=== PATIENT | female | born 1990 ===

== ENCOUNTER 2022-04-21 08:41 | Outpatient (REF) | payer OTHER, SELFPAY ==
[2022-04-21 11:25] LABS: Hematocrit 36.2 % (37.0-47.0); Hemoglobin 11.8 g/dl (12.0-16.0); Mean Corpuscular HGB Conc 32.6 g/dl (31.0-35.0); Mean Corpuscular Hemoglobin 29.8 pg (27.0-33.0); Mean Corpuscular Volume 91.4 fL (80.0-98.0); Mean Platelet Volume 10.8 fL (9.4-12.3); Platelet Count 317 X10*3/uL (160-400); Red Blood Count 3.96 X10*6/uL (4.20-5.50); Red Cell Distribution Width 11.9 % (11.0-16.0); White Blood Count 7.6 X10*3/uL (4.8-10.8)
[2022-04-21 11:56] LABS: Alanine Aminotransferase 37 U/L (0-31); Alkaline Phosphatase 60 U/L (39-117); Anion Gap 10 (12-20); Aspartate Amino Transferase 30 U/L (5-31); Bilirubin Total 0.3 mg/dL (0.0-1.0); Blood Urea Nitrogen 15 mg/dL (9-16); Calcium 8.5 mg/dL (8.4-10.2); Carbon Dioxide 27 mmol/L (22-29); Chloride 108 mmol/L (96-108); Cholesterol 164 mg/dL; Estimated Glomerular Filt Rate > 60; Glucose Fasting 111 mg/dL (60-99); HDL Cholesterol 28 mg/dL; LDL Cholesterol Calculated 104 mg/dl; Potassium 4.1 mmol/L (3.3-5.1); Sodium 141 mmol/L (135-145); Total Protein 6.9 g/dL (6.5-8.0); Triglycerides 160 mg/dL
[2022-04-21 11:57] LABS: TSH reflex Free T4 1.29 uIU/mL (0.32-4.0)
== END 2022-04-21 08:42 | disposition home or self-care (01) ==
LOC: HO.WFDLDS 08:41
PROVIDERS: Visit Provider Hospitalist
DX: Z00.00 Encounter for general adult medical examination without abnormal findings (principal)
CPT/HCPCS: 36415; 80053; 80061; 84443; 85027

== ENCOUNTER 2022-05-05 08:42 | Outpatient (REF) | payer OTHER, SELFPAY ==
[2022-05-05 12:07] LABS: Estimated Average Glucose 100 mg/dL; Hemoglobin A1c % 5.1 %
== END 2022-05-05 08:43 | disposition home or self-care (01) ==
LOC: HO.WFDLDS 08:42
PROVIDERS: Visit Provider Hospitalist
DX: R73.01 Impaired fasting glucose (principal)
CPT/HCPCS: 36415; 83036

== ENCOUNTER 2022-11-19 15:26 | Outpatient (REF) | payer OTHER, SELFPAY ==
[2022-11-19 16:15] LABS: Influenza A PCR NEGATIVE (Negative); Influenza B PCR NEGATIVE (Negative); Resp Syncy Virus RNA Qual PCR NEGATIVE (Negative); SARS COV2 PCR INHOUSE NEGATIVE (Negative)
== END 2022-11-19 15:27 | disposition home or self-care (01) ==
LOC: HO.LNP 15:26
PROVIDERS: Visit Provider Physician Assistant Medical
DX: Z20.822 Contact with and (suspected) exposure to COVID-19 (principal); R05.9 Cough, unspecified
CPT/HCPCS: 0241U

== ENCOUNTER 2023-05-23 08:12 | Outpatient (AMB) | payer OTHER, SELFPAY ==
--- NOTE | 2023-05-23 08:14 | AM.OFFWIN_ITS ---
Intake Vital Signs 05/23/23 08:22 BP 100/60 Blood Pressure Location Lt brachial Position Sitting Pulse 76 Pulse Source Pulse Oximeter Temp 97.9 F Temp Source Oral Pulse Oximetry (%) 97 Oxygen Delivery Method Room Air Intake Visit Reasons: EP Cough [phone] Intake Note: Pt is here today c/o dry cough 1week: Pt states just came back from a trip in [place], 05/17/23 sx's started over there Patient Tobacco Use Status: Never used Tobacco Allergies No Known Allergies [No Known Allergies*] Allergy (Verified 05/23/23 08:15) Do you need a note to return to daycare/school/sports/work: Yes HPI EP Cough [phone] HPI Details Patient presents for a sick visit. Reporting symptoms of sinus congestion, sore throat and difficulty swallowing. Low-grade fever. No family member is sick. No recent travel. Patient reports symptoms of malaise and fatigue. 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 Current occupational exposures/hazards: No Cognitive needs: No Hearing needs: No Vision needs: Yes Physical Exam Vital Signs: Last Vital Signs Temp 97.9 F 05/23/23 08:22 Pulse 76 05/23/23 08:22 BP 100/60 05/23/23 08:22 Pulse Ox 97 05/23/23 08:22 Oxygen Delivery Method Room Air 05/23/23 08:22 Const General: cooperative and healthy appearing Nutritional Appearance: well nourished Orientation/consciousness: patient oriented x3 Limitations: no limitations HEENT Head: Yes normal to inspection Eyes General: appearance normal, both eyes and all related structures Neck Neck: Yes normal visual inspection Chest Chest palpation & inspection: normal palpation of entire chest wall Resp Effort & Inspection: normal respiratory effort Neuro General: patient oriented x3 Assessment & Plan Assessment & Plan (1) Upper respiratory tract infection: Code(s): J06.9 - Acute upper respiratory infection, unspecified Plan: Antibiotics ordered. Increase fluid intake. Tylenol for aches and pains. If symptoms worsen, follow-up here for a recheck. COVID testing done. Prednisone added. Coding Level of Care Code Est Pt Level 3 (55395) Diagnoses Upper respiratory tract infection J06.9
[2023-05-23 08:22] VITALS: BP 100/60; PULSE 76; TEMP 36.6; O2SAT 97
== END 2023-05-23 08:39 | disposition home or self-care (01) ==
PROVIDERS: PCP Hospitalist; Visit Provider Internal Medicine
DX: J06.9 Acute upper respiratory infection, unspecified (principal)
CPT/HCPCS: 99213

== ENCOUNTER 2023-05-23 09:07 | Outpatient (REF) | payer OTHER, SELFPAY ==
[2023-05-23 13:19] LABS: Influenza A PCR NEGATIVE (Negative); Influenza B PCR NEGATIVE (Negative); Resp Syncy Virus RNA Qual PCR NEGATIVE (Negative); SARS COV2 PCR INHOUSE NEGATIVE (Negative)
== END 2023-05-23 09:08 | disposition home or self-care (01) ==
LOC: HO.LAB 09:07
PROVIDERS: Visit Provider Internal Medicine
DX: Z20.822 Contact with and (suspected) exposure to COVID-19 (principal); R43.9 Unspecified disturbances of smell and taste
CPT/HCPCS: 0241U

== ENCOUNTER 2023-09-18 14:59 | Outpatient (AMB) | payer OTHER, SELFPAY ==
--- NOTE | 2023-09-18 15:04 | A.OFFPC_ITS ---
Vital Signs 09/18/23 15:05 Height 5 ft Weight 133 lb BMI 26.0 Intake Visit Reasons: JIGNESH, requesting PE - NEEDS PHQ-9/THRIVE Allergies No Known Allergies [No Known Allergies*] Allergy (Verified 09/18/23 15:08) Tobacco use date assessed: 04/20/22 HPI HPI Comments History of Present Illness Details 33 y/o female presents for a transfer of care and an extended physical exam. Her former PCP was LOIDA who is no longer with the practice. Her last office visit and blood work was in April 2022. 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 Mark Quintanilla, Isabel Hood, Hoang Jerome and colleagues, with an educational gi from [employer]. Physical exam (Primary Care) Tobacco/Smoking Status: Tobacco use Status Tobacco use date assessed 04/20/22 04/20/22 15:12 Patient Tobacco Use Status Never used Tobacco 05/23/23 08:18 e-Cigarette/Vaping Use Never Used 04/20/22 15:12 Thrive Assessment: Date of Thrive Assessment Date Thrive assessed 04/20/22 04/20/22 15:12 Coding
--- NOTE | 2023-09-18 15:04 | MHC.PC.OV ---
Vital Signs 09/18/23 15:05 Height 5 ft Weight 133 lb BMI 26.0 BP 112/68 Blood Pressure Location Rt brachial Position Sitting Respiration 12 Pulse 72 Pulse Source Pulse Oximeter Pulse Oximetry (%) 97 Oxygen Delivery Method Room Air Intake Visit Reasons: JIGNESH, requesting PE - NEEDS PHQ-9/THRIVE Intake Note: Patient is here, transferring care from [facility], she would like to discuss tingling in hands and face comes and goes 2-3 years. Allergies No Known Allergies [No Known Allergies*] Allergy (Verified 09/18/23 15:23) Medication List - Last Reconciled 09/18/23 by Tamela Macedo CNP albuterol sulfate 90 mcg/actuation 1 inh inhalation QID PRN fluticasone propionate 50 mcg/actuation 1 spray intranasal DAILY Tobacco use date assessed: 09/18/23 Dental Screening Dental Screen Date: 09/18/23 Did you have a dental visit in the last 12 months?: Yes Did you have a dental problem in the last 6 months where you did not have access to dental care?: No Was dental information given to patient?: Patient has dentist HPI HPI Comments History of Present Illness Details 33 y/o female presents for a transfer of care and an extended physical exam. Her former PCP was LOIDA who is no longer with the practice. Her last office visit and blood work was in April 2022. She has no significant past medical history. She is not on routine prescription medications. She offers no complaints and denies acute symptoms at this time. 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 She states that she is sexually active, in a monogamous relationship, and practices safe sex. She denies smoking cigarette, drinking alcohol, or recreational drug use. 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 1. Little interest or pleasure in doing things: not at all 2. Feeling down, depressed, or hopeless: not at all 3. Trouble falling or staying asleep, or sleeping too much: several days 4. Feeling tired or having little energy: several days 5. Poor appetite or overeating: not at all 6. Feeling bad about yourself - or that you are a failure or have let yourself or your family down: not at all 7. Trouble concentrating on things, such as reading the newspaper or watching television: not at all 8. Moving or speaking so slowly that other people could have noticed. Or the opposite - being so fidgety or restless that you have been moving around a lot more than usual: not at all 9. Thoughts that you would be better off or of hurting yourself in some way: not at all Total score: 2 Depression Screening Interpretation: Negative Depression Screening Done: Yes Source: Developed by Drs. Mark Quintanilla, Isabel Hood, Hoang Jerome and colleagues, with an educational gi from [employer]. Thrive Questionnaire Date Thrive assessed: 04/20/22 I am a: Patient What is your living situation today?: I have a steady place to live Within the past 12 months, did the food you bought not last and you didn't have the money to get more?: Never true Within the past 12 months, did you worry whether your food would run out before you got money to buy more?: Never true Do you have trouble paying for medicines?: No Do you have trouble getting transportation to medical appointments?: No Do you have trouble paying your heating and electricity bill?: No Do you have trouble taking care of your child, family member or friend?: No Do you have trouble with day-to-day activities such as bathing, preparing meals, shopping, managing finances, etc.?: No Are you currently unemployed and looking for a job?: No Are you interested in more education?: No AUDIT C Alcohol Use Questionnaire (AUDIT-C) 1. How often do you have a drink containing alcohol?: Never 3. How often do you have six or more drinks on one occasion?: Never Total Score: 0 YANNICK-7 AMB Questionnaire YANNICK-7 Date YANNICK - 7 assessed: 09/18/23 Feeling nervous, anxious, or on edge: 0 = Not at all Not being able to stop or control worryin = Not at all Worrying too much about different things: 0 = Not at all Trouble relaxin = Not at all Being so restless that it is hard to sit still: 0 = Not at all Becoming easily annoyed or irritable: 0 = Not at all Feeling afraid as if something awful might happen: 0 = Not at all Total YANNICK-7 score (0-4 normal; 5-9 mild; 10-14 moderate; 15-21 severe): 0 Source: Developed by Drs. Mark Quintanilla, Isabel Hood, Hoang Jerome and colleagues, with an educational gi from [employer]. Review of Systems Const Details: Denies chills, Denies fatigue, Denies fever(s), Denies headache(s) and Denies weakness HEENT Denies change in vision, Denies dizziness, Denies headache(s), Denies hearing loss, Denies nasal congestion, Denies sinus pain, Denies sinus pressure and Denies sore throat Card Denies chest pain, Denies lightheadedness, Denies dyspnea and Denies other (palpitations) Resp Denies cough, Denies dyspnea and Denies wheezing GI Denies abdominal pain, Denies melena, Denies hematochezia, Denies change in bowel habits, Denies dyspepsia and Denies nausea Denies hematuria and Denies dysuria Musc Denies abnormal gait, Denies myalgias, Denies arthralgias, Denies numbness and Denies tingling Skin/Breast Denies rash, Denies unusual bruising and Denies wounds Neuro Denies abnormal gait, Denies dizziness, Denies headache(s), Denies memory loss, Denies numbness, Denies Sensory deficit (Neuro), Denies tingling and Denies weakness Psych Denies anxiety, Denies depression and Denies memory loss Endo Denies cold intolerance, Denies fatigue, Denies heat intolerance, Denies polydipsia and Denies polyuria Miguel Angel/Lymph Denies easy bleeding and Denies easy bruising Aller/Immun Denies wheezing Physical exam (Primary Care) BMI result Body Mass Index 26.0 Tobacco/Smoking Status: Tobacco use Status Tobacco use date assessed 04/20/22 09/18/23 15:05 Patient Tobacco Use Status Never used Tobacco 09/18/23 15:05 e-Cigarette/Vaping Use Never Used 09/18/23 15:05 Depression Screening Interpretation: Negative Thrive Assessment: Date of Thrive Assessment Date Thrive assessed 04/20/22 09/18/23 15:05 Const Other: General: no acute distress, well developed, alert and awake Nutritional Appearance: well nourished Orientation/consciousness: patient oriented x3 HENMT Head: Yes normocephalic and Yes atraumatic Ears: hearing grossly normal bilaterally and TM's normal bilaterally General nose exam: Normal external nose present and Normal nares present Mouth: Normal oral and palatal mucosa present and moist mucous membranes Teeth and gingiva: dentition normal Throat: Yes oropharynx normal Eyes Pupils: Equal, round and reactive pupils present and Pupil accommodation reflex normal EOM: EOMs intact bilaterally Neck Neck: Yes normal visual inspection, Yes no lymphadenopathy and Yes trachea midline Thyroid: Thyroid normal Carotids: no bruits Lymphatic: no lymphadenopathy noted Chest Chest palpation & inspection: normal inspection of the chest Resp Effort & Inspection: normal respiratory effort Auscultation: clear to auscultation bilaterally Cardio Rate: regular rate Rhythm: regular rhythm Heart sounds: S1 normal heart sound present, S2 normal heart sound present, no gallops, no murmurs and no rubs Bruits: no abdominal aortic bruits and no carotid bruits GI Palpation (GI): No Abdominal aortic bruit present, Soft to palpation, nontender, No hepatosplenomegaly present and No Rebound tenderness present Auscultation: normal bowel sounds General: Yes no CVA tenderness Back/Spine/Pelvis Back: no CVA tenderness Cervical Spine: cervical ROM normal and No Cervical spine tenderness Thoracic/Lumbar Spine: thoraco-lumbar ROM normal, No pain with thoraco-lumbar ROM, No thoracic spinal tenderness and No lumbar spinal tenderness Skin General: warm and dry. Normal skin color. Normal skin turgor Lesions: no lesions Rashes: no rashes Trauma: no lacerations or abrasions Wounds: no wounds Nails: normal Neuro General: patient oriented x3, gait normal and CN's II-XI intact bilaterally Cranial nerves: Yes Equal, round and reactive pupils present Cognition (Neuro): normal cognition Gait exam (Neuro): Normal gait present Motor exam (neuro): 5/5 motor strength present throughout Sensory Exam: No Sensory deficit (Neuro) Deep tendon reflexes (DTR's): Right patellar reflex intensity grade: 2+ and Left patellar reflex intensity grade: 2+ Extrem General: Yes normal to inspection, No edema and No calf tenderness Psych Appearance: grossly normal Affect: normal affect Attitude: cooperative Thought process: Normal thought process present Assessment and Plan Assessment & Plan (1) Normal physical exam: Code(s): Z00.00 - Encounter for general adult medical examination without abnormal findings Plan: No significant physical restrictions or limitations noted Advised to get urinalysis and fasting blood work done and schedule a telehealth visit for labs review Follow-up with symptoms or concerns Verbalized understanding and agreed with treatment plan. Orders: Orders Complete Blood Count Auto Diff Today Z00.00 - Encounter for general adult medical examination without abnormal findings Complete Blood Count no Diff Today Z00.00 - Encounter for general adult medical examination without abnormal findings Lipid Panel Today Z00.00 - Encounter for general adult medical examination without abnormal findings TSH reflex Free T4 Today Z00.00 - Encounter for general adult medical examination without abnormal findings UA CC w/rflx Micro + Cult Today Z00.00 - Encounter for general adult medical examination without abnormal findings Coding Level of Care Code Est Pt Prev Care 18-39y(15333) Diagnoses Normal physical exam Z00.00
[2023-09-18 15:05] VITALS: BP 112/68; PULSE 72; RESP 12; O2SAT 97; BMI 26.0
== END 2023-09-18 15:33 | disposition home or self-care (01) ==
PROVIDERS: PCP Hospitalist; Visit Provider Nurse Practitioner Family
DX: Z00.00 Encounter for general adult medical examination without abnormal findings (principal)
CPT/HCPCS: 99395

== ENCOUNTER 2023-10-07 09:22 | Outpatient (REF) | payer OTHER, SELFPAY ==
[2023-10-07 11:11] LABS: MANUAL DIFF FLAG NO
[2023-10-07 11:20] LABS: Appearance Urine Cloudy; Color Urine Yellow; Glucose Urine UA Negative (Negative); Leukocyte Esterase Urine Negative (Negative); Nitrite Urine Negative (Negative); PH 6.5 (5.0-9.0); Specific Gravity - Urine 1.025 (1.005-1.025); UMIC TRIGGER UACC YES; Urine Blood Moderate (2+) (Negative); Urine Ketones Negative (Negative); Urine Protein Negative (Neg-Trace)
[2023-10-07 11:21] LABS: Basophils Percent Auto 0.4 % (0-2); Eosinophils Absolute Auto 0.2 X10*3/uL (0.0-0.4); Eosinophils Percent Auto 2.2 % (0-4); Hematocrit 39.5 % (37.0-47.0); Hemoglobin 13.1 g/dl (12.0-16.0); Imm Gran Abs Auto 0.03 X10*3/uL (0.00-0.03); Imm Gran Pct Auto 0.4 % (0.0-0.4); Lymphocytes Absolute Auto 2.1 X10*3/uL (1.2-4.9); Lymphocytes Percent Auto 26.5 % (20-40); Mean Corpuscular HGB Conc 33.2 g/dl (31.0-35.0); Mean Corpuscular Hemoglobin 30.3 pg (27.0-33.0); Mean Corpuscular Volume 91.4 fL (80.0-98.0); Mean Platelet Volume 11.2 fL (9.4-12.3); Monocytes Absolute Auto 0.5 X10*3/uL (0.1-1.2); Monocytes Percent Auto 6.1 % (2-11); Neutrophils Percent Auto 64.4 % (45-73); Platelet Count 303 X10*3/uL (160-400); Red Blood Count 4.32 X10*6/uL (4.20-5.50); White Blood Count 7.8 X10*3/uL (4.8-10.8)
[2023-10-07 11:30] LABS: Bacteria Urine 4+ (None Seen); Squamous Epithelial Cell Urine >20 /HPF (0-2); UACC Culture Trigger YES
[2023-10-07 11:46] LABS: Cholesterol 156 mg/dL (<200); HDL Cholesterol 32 mg/dL (>40); LDL Cholesterol Calculated 95 mg/dL (<100); Triglycerides 149 mg/dL (<150)
[2023-10-07 11:54] LABS: TSH reflex Free T4 1.47 uIU/mL (0.32-4.0)
== END 2023-10-07 09:23 | disposition home or self-care (01) ==
LOC: HO.HMGCLDS 09:22
PROVIDERS: PCP Nurse Practitioner Family; Visit Provider Nurse Practitioner Family
DX: Z00.00 Encounter for general adult medical examination without abnormal findings (principal)
CPT/HCPCS: 36415; 80061; 81001; 84443; 85025; 85027; 87086

== ENCOUNTER 2023-12-06 11:14 | Outpatient (AMB) | payer OTHER, SELFPAY ==
[2023-12-06 11:47] VITALS: BP 140/90; PULSE 69; TEMP 36.6; O2SAT 99; BMI 26.6
--- NOTE | 2023-12-06 11:47 | MHC.OFFWIV ---
Intake Vital Signs 12/06/23 11:47 Height 5 ft Weight 136 lb BMI 26.6 BP 140/90 H Blood Pressure Location Lt brachial Position Sitting Pulse 69 Pulse Source Pulse Oximeter Temp 97.9 F Temp Source Temporal Artery Scan Pulse Oximetry (%) 99 Oxygen Delivery Method Room Air Intake Visit Reasons: EST/congestion ([phone]) Intake Note: pt is here today for congestion started 1 month Patient Tobacco Use Status: Never used Tobacco Allergies No Known Allergies [No Known Allergies*] Allergy (Verified 12/06/23 11:48) Do you need a note to return to daycare/school/sports/work: Yes HPI HPI Comments History of Present Illness Details Patient is a 33yo F who presents with sinus complaint Ongoing > 1 month Chronic allergies which she takes benadryl and flonase She states no relief with those medicines Increased sinus fronal tenderness/headaches + ear fullness without drainage Occasional post nasal drip/sore throat No cough, CP, SOB, fever or chills + occasional dizziness No pain scale given [facility] Social History Housing: House Patient Tobacco Use Status: Never used Tobacco e-Cigarette/Vaping Use: Never Used Second Hand Smoke Exposure: No service: No Current occupational status: employed 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 Current occupational exposures/hazards: No Cognitive needs: No Hearing needs: No Vision needs: Yes Review of Systems Const Denies body aches, Denies chills, Denies fever(s), Reports headache(s) and Denies weakness ENT Reports dizziness, Reports otalgia, Reports headache(s), Reports nasal congestion, Reports nasal discharge, Reports nose pain, Reports sinus pressure, Reports sore throat and Denies throat swelling Card Denies chest pain and Denies dyspnea Resp Denies cough and Denies dyspnea Musc Denies tingling Neuro Reports dizziness, Reports headache(s), Denies lack of coordination, Denies focal weakness, Denies tingling and Denies weakness Aller/Immun Denies throat swelling Physical Exam Vital Signs: Last Vital Signs Temp 97.9 F 12/06/23 11:47 Pulse 69 12/06/23 11:47 BP 140/90 H 12/06/23 11:47 Pulse Ox 99 12/06/23 11:47 Oxygen Delivery Method Room Air 12/06/23 11:47 BMI result Body Mass Index 26.6 General: Non-toxic, NAD. Speaking full sentences. Skin: Warm dry throughout Eye: EOMI, PERRL HENT: Airway patent. Uvula midline. No pharyngeal erythema or edema. 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 Bilateral canals clear. TM non-erythematous, non-bulging. + slight fluid. No TM perforation or hemotympanum noted. + rhinorrhea. + frontal sinus tenderness to palpation. Respiratory: CTA bilaterally. No wheezes, rales or rhonchi Cardiac: RRR. No murmur Neurology: A/O. No aphasia or facial droop. Gait without abnormality Psych: Good mood and affect Assessment & Plan Assessment & Plan (1) Bacterial sinusitis: Code(s): J32.9 - Chronic sinusitis, unspecified; B96.89 - Other specified bacterial agents as the cause of diseases classified elsewhere Plan: Patient seen and evaluated. + bacterial sinusitis on exam with symptoms > 1 month Augmentin Nasal sterid. D/c flonase F/U with ENT/PCP Patient gave verbal understanding and had no additional questions or concerns at time of discharge All questions answered Medications: New ipratropium bromide administer into each nostril 2 sprays intranasal BID-TID PRN 30 mL 0RF allergy symptoms 7 days amoxicillin-pot clavulanate 875-125 mg 1 tab PO BID 14 tabs 0RF Coding Level of Care Code Est Pt Level 3 (91524) Diagnoses Bacterial sinusitis J32.9; B96.89
== END 2023-12-06 12:08 | disposition home or self-care (01) ==
PROVIDERS: PCP Nurse Practitioner Family; Visit Provider Physician Assistant
DX: J32.9 Chronic sinusitis, unspecified (principal); B96.89 Other specified bacterial agents as the cause of diseases classified elsewhere
CPT/HCPCS: 99213

== ENCOUNTER 2024-04-09 08:54 | Outpatient (AMB) | payer OTHER, SELFPAY ==
--- NOTE | 2024-04-09 10:02 | MHC.OFFWIV ---
Intake Vital Signs 04/09/24 10:10 Height 5 ft Weight 136 lb BMI 26.6 BP 118/62 Blood Pressure Location Rt brachial Position Sitting Pulse 96 Pulse Source Pulse Oximeter Temp 98.9 F Temp Source Oral Pulse Oximetry (%) 96 Oxygen Delivery Method Room Air Intake Visit Reasons: EP cough (maksed) Intake Note: pt is here for cough, started over the weekend Patient Tobacco Use Status: Never used Tobacco Allergies No Known Allergies [No Known Allergies*] Allergy (Verified 04/09/24 10:10) Do you need a note to return to daycare/school/sports/work: Yes HPI HPI Comments History of Present Illness Details 33-year-old female with no significant past medical history complaining of cough x3 days, chills, subjective fever, upset stomach, fatigue, headache and sore throat. She denies nausea vomiting diarrhea, shortness of breath, chest pain, sinus pain or ear pain. She has not tried any medications to improve her symptoms. 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 occupational exposures/hazards: No Cognitive needs: No Hearing needs: No Vision needs: Yes Review of Systems Const All systems reviewed & are unremarkable except as noted in HPI and below Physical Exam Vital Signs: Last Vital Signs Temp 98.9 F 04/09/24 10:10 Pulse 96 04/09/24 10:10 BP 118/62 04/09/24 10:10 Pulse Ox 96 04/09/24 10:10 Oxygen Delivery Method Room Air 04/09/24 10:10 BMI result Body Mass Index 26.6 Const General: cooperative, healthy appearing, comfortable and no acute distress Orientation/consciousness: patient oriented x3 Limitations: no limitations HEENT Head: Yes normal to inspection Ears: external ears normal General nose exam: Normal external nose present, Normal nares present and No nasal discharge present Face and sinus: Yes normal facial exam and Yes sinuses nontender Mouth: Normal oral and palatal mucosa present and moist mucous membranes Throat: Yes posterior oropharynx abnormal (erythematous) and No cobblestoning Eyes General: appearance normal, both eyes and all related structures Neck Neck: Yes normal visual inspection Resp Effort & Inspection: normal respiratory effort, able to speak in complete sentences, Actively coughing, no respiratory distress, not tachypneic, no tripod positioning and no use of accessory muscles Auscultation: clear to auscultation bilaterally Cardio Rate: regular rate Rhythm: regular rhythm Heart sounds: normal S1 and S2 Skin General skin exam: no rashes or lesions noted Neuro General: patient oriented x3 Extrem General: Yes normal to inspection and Yes no clubbing, cyanosis or edema Assessment & Plan Assessment & Plan (1) Upper respiratory tract infection: Code(s): J06.9 - Acute upper respiratory infection, unspecified Plan: flu/covid/rsv sent, tx with albuterol inhaler as likely cough 2/2 bronchospasm, advised to tx symptoms with [id number] medication, lots of fluids, start daily allergy pill, etc... If she experiences increasing shortness of breath or chest pain, or for symptoms do not resolve in the next few days or get worse, she should go to the emergency department or follow-up with her PCP. Gave work excuse note for 3 days. Orders: Orders SARS-CoV2/FLU/RSV Today J06.9 - Acute upper respiratory infection, unspecified Medications: New albuterol sulfate 90 mcg/actuation (Ventolin HFA) 2 inhalations inhalation Q4-6H PRN 6.7 grams 0RF shortness of breath or wheezing or cough Coding Level of Care Code Est Pt Level 3 (13315) Diagnoses Upper respiratory tract infection J06.9
[2024-04-09 10:10] VITALS: BP 118/62; PULSE 96; TEMP 37.2; O2SAT 96; BMI 26.6
== END 2024-04-09 10:54 | disposition home or self-care (01) ==
PROVIDERS: PCP Nurse Practitioner Family; Visit Provider Physician Assistant
DX: J06.9 Acute upper respiratory infection, unspecified (principal)
CPT/HCPCS: 99213

== ENCOUNTER 2024-04-09 10:33 | Outpatient (REF) | payer OTHER, SELFPAY ==
[2024-04-09 14:43] LABS: Influenza A PCR NEGATIVE (Negative); Influenza B PCR NEGATIVE (Negative); Resp Syncy Virus RNA Qual PCR NEGATIVE (Negative); SARS COV2 PCR INHOUSE NEGATIVE (Negative)
== END 2024-04-09 10:34 | disposition home or self-care (01) ==
LOC: HO.LAB 10:33
PROVIDERS: Visit Provider Physician Assistant
DX: J06.9 Acute upper respiratory infection, unspecified (principal)
CPT/HCPCS: 0241U

== ENCOUNTER 2024-04-12 11:41 | Outpatient (AMB) | payer OTHER, SELFPAY ==
[2024-04-12 11:46] VITALS: BP 110/64; PULSE 110; RESP 14; TEMP 36.4; O2SAT 94; BMI 25.2
--- NOTE | 2024-04-12 11:46 | A.OFFPC_ITS ---
Vital Signs 04/12/24 11:46 Height 5 ft Weight 129 lb 4 oz BMI 25.2 BP 110/64 Blood Pressure Location Rt brachial Position Sitting Respiration 14 Pulse 110 H Pulse Source Pulse Oximeter Temp 97.6 F Temp Source Temporal Artery Scan Pulse Oximetry (%) 94 Oxygen Delivery Method Room Air Intake Visit Reasons: bad cough Accompanied by: Self / Same As Patient Allergies No Known Allergies [No Known Allergies*] Allergy (Verified 04/12/24 11:51) Tobacco use date assessed: 04/12/24 Dental Screening Dental Screen Date: 04/12/24 Did you have a dental visit in the last 12 months?: Yes Did you have a dental problem in the last 6 months where you did not have access to dental care?: No Was dental information given to patient?: Patient has dentist HPI HPI Comments History of Present Illness Details 33-year-old female presents with complai nts of persistent cough. She notes that the cough started last with associated fever (temp of approx 103) and chills which have subsided. However she continues to experience consistent dry cough and developed pain to her ribcage with coughing. She also reports associated sore throat. She was evaluated at an urgent care last week and was tested for covid, flu, and rsv and told she would receive a call with negative results only; she has not received a call. She states she was informed she has an upper respiratory infection. She notes that her children recently started coughing and has had a fever. TheraFlu, NyQuil, DayQuil, and Mucinex have not been effective. No fever, chills, body aches, fatigue, or weakness. 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 Mark Quintanilla, Isabel Hood, Hoang Jerome and colleagues, with an educational gi from [employer]. Review of Systems Const Details: Const Denies chills, Denies fatigue, Denies fever(s), Denies headache(s) and Denies weakness ENT Reports as per HPI Card Denies chest pain, Denies lightheadedness, Denies dyspnea and Denies other (Palpitations) Resp Denies cough, Denies dyspnea, Denies wheezing and Denies other ( shortness of breath) GI Denies abdominal pain, Denies melena, Denies hematochezia, Denies change in bowel habits, Denies dyspepsia and Denies nausea Denies hematuria and Denies dysuria Musc Denies abnormal gait, Denies myalgias, Denies arthralgias, Denies numbness and Denies tingling Skin/Breast Denies rash, Denies unusual bruising and Denies wounds Neuro Denies abnormal gait, Denies dizziness, Denies headache(s), Denies memory loss, Denies numbness, Denies Sensory deficit (Neuro), Denies tingling and Denies weakness Psych Denies anxiety, Denies depression, Denies memory loss Endo Denies cold intolerance, Denies fatigue, Denies heat intolerance, Denies polydipsia and Denies polyuria Aller/Immun Denies wheezing Physical exam (Primary Care) Vital Signs: Last Vital Signs Temp 97.6 F 04/12/24 11:46 Pulse 110 H 04/12/24 11:46 Resp 14 04/12/24 11:46 BP 110/64 04/12/24 11:46 Pulse Ox 94 04/12/24 11:46 Oxygen Delivery Method Room Air 04/12/24 11:46 BMI result Body Mass Index 25.2 Tobacco/Smoking Status: Tobacco use Status Tobacco use date assessed 04/12/24 04/12/24 11:53 Patient Tobacco Use Status Never used Tobacco 04/12/24 11:53 e-Cigarette/Vaping Use Never Used 04/12/24 11:53 Thrive Assessment: Date of Thrive Assessment Date Thrive assessed 04/20/22 04/12/24 11:53 Const Other: General: no acute distress and well developed Nutritional Appearance: well nourished Orientation/consciousness: patient oriented x3 HENCO Head is normocephalic Bilateral ear canal and TM are normal Nasal turbinates are pink and moist Oropharynx with moderate erythema, tonsils slightly enlarged, no patches or exudate Sinuses are nontender with palpation No auricular or cervical lymphadenopathy Eyes General: appearance normal, both eyes and all related structures Pupils: Equal, round and reactive pupils present EOM: EOMs intact bilaterally Resp Effort & Inspection: normal respiratory effort Auscultation: clear to auscultation bilaterally Cardio Rate: regular rate Rhythm: regular rhythm Heart sounds: S1 normal heart sound present, S2 normal heart sound present, no gallops, no murmurs and no rubs GI Palpation (GI): No Abdominal aortic bruit present, Soft to palpation, nontender, No hepatosplenomegaly present and No Rebound tenderness present Auscultation: normal bowel sounds General: Yes no CVA tenderness Back/Spine/Pelvis Back: no CVA tenderness Cervical Spine: cervical ROM normal and No Cervical spine tenderness Thoracic/Lumbar Spine: thoraco-lumbar ROM normal, No pain with thoraco-lumbar ROM, No thoracic spinal tenderness and No lumbar spinal tenderness Extrem General: Yes normal to inspection, No edema and No calf tenderness Skin General: warm and dry. Normal skin color. Normal skin turgor Neuro General: patient oriented x3, gait normal and no focal neuro deficit Cranial nerves: Yes Equal, round and reactive pupils present Cognition (Neuro): normal cognition Gait exam (Neuro): Normal gait present Sensory Exam: No Sensory deficit (Neuro) Psych Appearance: grossly normal Affect: normal affect Attitude: cooperative Thought process: Normal thought process present Assessment and Plan Assessment & Plan (1) Upper respiratory tract infection: Code(s): J06.9 - Acute upper respiratory infection, unspecified Plan: Likely viral illness though possibly allergies. No exam evidence of bacterial infection Viral illness There is no antibiotic medication for viruses.? They must run their course.? Most average 5-7 days but 7-10 days is not uncommon and up to 14 days is still possible.? A cough is often the last symptom to resolve and this can last for weeks in some cases. Rest Hydrate well -? Drink plenty of fluids.? Especially water. Tylenol or ibuprofen for muscle aches, headache, fever/discomfort Codeine-guaifenesin as prescribed Cannot rule out COVID-19/RSV/Flu infection Nasal swab acquired and will be sent to the lab Return for new or worsening symptoms Verbalized understanding and agreed with treatment plan. (2) Viral pharyngitis: Code(s): J02.9 - Acute pharyngitis, unspecified Plan: Oropharynx with moderate erythema, tonsils slightly enlarged, no patches or exudate Plan as above Orders: Orders SARS-CoV2/FLU/RSV Today R09.89 - Other specified symptoms and signs involving the circulatory and respiratory systems Medications: New codeine-guaifenesin 7.5-225 mg/5 mL 5 mL PO Q6H PRN 473 mL 0RF cough Coding Level of Care Code Est Pt Level 4 (26976) Complex EM visit Add On G2211 Diagnoses Upper respiratory tract infection J06.9 Viral pharyngitis J02.9
== END 2024-04-12 12:25 | disposition home or self-care (01) ==
PROVIDERS: PCP Nurse Practitioner Family; Visit Provider Nurse Practitioner Family
DX: J06.9 Acute upper respiratory infection, unspecified (principal); J02.9 Acute pharyngitis, unspecified
CPT/HCPCS: 99214; G2211

== ENCOUNTER 2024-04-12 12:24 | Outpatient (REF) | payer OTHER, SELFPAY ==
[2024-04-12 15:19] LABS: Influenza A PCR NEGATIVE (Negative); Influenza B PCR NEGATIVE (Negative); Resp Syncy Virus RNA Qual PCR NEGATIVE (Negative); SARS COV2 PCR INHOUSE NEGATIVE (Negative)
== END 2024-04-12 12:25 | disposition home or self-care (01) ==
LOC: HO.LAB 12:24
PROVIDERS: Visit Provider Nurse Practitioner Family
DX: R09.89 Other specified symptoms and signs involving the circulatory and respiratory systems (principal)
CPT/HCPCS: 0241U

== ENCOUNTER 2024-04-18 08:02 | Outpatient (AMB) | payer OTHER, SELFPAY ==
--- NOTE | 2024-04-18 08:08 | AM.OFFWIN_ITS ---
Intake Vital Signs 04/18/24 08:09 Height 5 ft Weight 127 lb BMI 24.8 BP 108/62 Blood Pressure Location Lt brachial Position Sitting Pulse 104 H Pulse Source Pulse Oximeter Temp 98.2 F Temp Source Oral Pulse Oximetry (%) 92 Oxygen Delivery Method Room Air Intake Visit Reasons: EP LT ear pain Intake Note: pt here for LT ear pain and non-productive cough w/ sob/dizziness. Started 2 weeks ago Patient Tobacco Use Status: Never used Tobacco Allergies No Known Allergies [No Known Allergies*] Allergy (Verified 04/18/24 08:08) Do you need a note to return to daycare/school/sports/work: Yes HPI HPI Comments History of Present Illness Details Patient is a 33-year-old female patient complaining of 2 weeks of a dry cough, left ear pain, some shortness of breath, dizziness that makes her feel off balance and fevers that seemed to have resolved last week. She states she has associated hearing loss in her left ear and has a history of left ear issues and sees an ENT doctor for it, she states she often has hearing reduction in that ear. She states she has tried several medications to feel better but nonetheless some to work, she is tried DayQuil, NyQuil, TheraFlu, Mucinex and Tylenol cough. She denies any nausea vomiting or diarrhea and is able to maintain p.o. intake. She also states she has inhalers she was prescribed last year and isn't sure if she is using it properly but it does not seem to help with her cough. 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 Current occupational exposures/hazards: No Cognitive needs: No Hearing needs: No Vision needs: Yes Review of Systems Const All systems reviewed & are unremarkable except as noted in HPI and below Physical Exam Vital Signs: Last Vital Signs Temp 98.2 F 04/18/24 08:09 Pulse 104 H 06/13/24 08:09 BP 108/62 04/18/24 08:09 Pulse Ox 92 04/18/24 08:09 Oxygen Delivery Method Room Air 04/18/24 08:09 BMI result Body Mass Index 24.8 Const General: cooperative, healthy appearing, comfortable and no acute distress Orientation/consciousness: patient oriented x3 Limitations: no limitations HEENT Head: Yes normal to inspection Ears: external ears normal, TM normal on the right, Abnormal EAC present otic discharge occluded by discharge (thin yellow discharge and edema) on the left and unable to visualize TM on the left General nose exam: Normal external nose present, Normal nares present and No nasal discharge present Face and sinus: Yes normal facial exam and Yes sinuses nontender Mouth: Normal oral and palatal mucosa present and moist mucous membranes Throat: Yes tonsils normal, Yes uvula midline and Yes posterior oropharynx abnormal (Erythema) Eyes General: appearance normal, both eyes and all related structures Neck Neck: Yes normal visual inspection Resp Effort & Inspection: normal respiratory effort, able to speak in complete sentences, Actively coughing, no respiratory distress, not tachypneic, no tripod positioning and no use of accessory muscles Auscultation: clear to auscultation bilaterally Cardio Rate: regular rate Rhythm: regular rhythm Heart sounds: normal S1 and S2 Skin General skin exam: no rashes or lesions noted Neuro General: patient oriented x3 Extrem General: Yes normal to inspection and Yes no clubbing, cyanosis or edema Assessment & Plan Assessment & Plan (1) Cough: Code(s): R05.9 - Cough, unspecified Qualifiers: Cough type: acute Qualified Code(s): R05.1 - Acute cough Plan: Oxygen saturation a little bit low and heart rate 104 the patient without any history of asthma, will get chest x-ray. Educated patient on how to use her inhaler properly. (2) Otitis externa: Code(s): H60.90 - Unspecified otitis externa, unspecified ear Qualifiers: Otitis externa type: diffuse Chronicity: acute Laterality: left Qualified Code(s): H60.312 - Diffuse otitis externa, left ear Plan: Drops sent to pharmacy Plan see above Orders: Orders XR chest 2V Today R05.9 - Cough, unspecified Medications: New [id number]-[id number]-FB 3.5-10,000-1 mg/mL-unit/mL-% 4 drps otic (ears) Q8H 10 days 10 mL 0RF azithromycin take 500 mg today (day 1), then 250 mg for 4 days (days 2-5) PO 6 tabs 0RF Coding Level of Care Code Est Pt Level 3 (59139) Diagnoses Acute cough R05.1 Cough type: acute Acute diffuse otitis externa of left ear H60.312 Otitis externa type: diffuse Chronicity: acute Laterality: left
[2024-04-18 08:09] VITALS: BP 108/62; PULSE 104; TEMP 36.8; O2SAT 92; BMI 24.8
== END 2024-04-18 09:20 | disposition home or self-care (01) ==
PROVIDERS: PCP Nurse Practitioner Family; Visit Provider Physician Assistant
DX: R05.1 Acute cough (principal); H60.312 Diffuse otitis externa, left ear
CPT/HCPCS: 99213

== ENCOUNTER 2024-04-18 08:33 | Outpatient (REF) | payer OTHER, SELFPAY ==
--- NOTE | ~2024-04-18 | XR_ITS ---
EXAMINATION: XR CHEST CLINICAL INFORMATION: Cough unspecified COMPARISON: None available. TECHNIQUE: 2 views of the chest were obtained. FINDINGS: Bibasilar airspace opacities noted right greater than left with zones of atelectasis at the right base. Upper lungs clear. Heart and pulmonary vessels normal. XR/XR chest 2V IMPRESSION: Bibasilar pneumonia.
== END 2024-04-18 08:34 | disposition home or self-care (01) ==
LOC: HO.HMGCX 08:33
PROVIDERS: PCP Nurse Practitioner Family; Visit Provider Physician Assistant
DX: R05.9 Cough, unspecified (principal)
CPT/HCPCS: 71046

== ENCOUNTER 2024-09-23 10:39 | Outpatient (AMB) | payer OTHER, SELFPAY ==
--- NOTE | 2024-09-23 10:42 | A.OFFPC_ITS ---
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: No Is last menstrual period known: Yes Last menstrual period: 08/29/24 Post menopausal: No Patient : No Allergies No Known Allergies [No Known Allergies*] Allergy (Verified 09/23/24 10:53) Tobacco use date assessed: 04/12/24 Dental Screening Dental Screen Date: 09/23/24 Did you have a dental visit in the last 12 months?: Yes Did you have a dental problem in the last 6 months where you did not have access to dental care?: No Was dental information given to patient?: Patient has dentist HPI HPI Comments History of Present Illness0 Details 34-year-old female presents for an exten ded physical exam She has history of allergies She is not on prescription medication She admits to making healthy dietary changes. She does not exercise. She reports poor sleep, average 5 hours nightly which she attributes to allergies/nasal congestion. She has to wake up a few times to blow her nose. Her symptoms are refractory to flonase and antihistamines. She has had intermittent allergies since childhood. She has follow-ups history with arts administrator or manager and ENT. She notes that she is allergic to multiple allergens. She was advised by ENT of [facility] to have nasal polyps removed. She requests a referral to ENT of [facility] Nonsmoker. Does not drink alcohol. No recreational drugs Last eye exam 2-3 years ago. 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 ANALYTICS MANAGER 1-1.5 year ago: normal Last tetanus vaccine was about 6 years ago She is not up-to-date on the flu vaccine and decline vaccination [facility] Medical History (Updated 09/23/24 @ 14:47 by Tamela Macedo CNP) No pertinent past medical history Surgical History No pertinent past surgical history Social History Housing: House Patient Tobacco Use Status: Never used Tobacco e-Cigarette/Vaping Use: Never Used Second Hand Smoke Exposure: No service: No Current occupational status: employed 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 1. Little interest or pleasure in doing things: not at all 2. Feeling down, depressed, or hopeless: not at all 3. Trouble falling or staying asleep, or sleeping too much: several days 4. Feeling tired or having little energy: several days 5. Poor appetite or overeating: not at all 6. Feeling bad about yourself - or that you are a failure or have let yourself or your family down: not at all 7. Trouble concentrating on things, such as reading the newspaper or watching television: not at all 8. Moving or speaking so slowly that other people could have noticed. Or the opposite - being so fidgety or restless that you have been moving around a lot more than usual: not at all 9. Thoughts that you would be better off or of hurting yourself in some way: not at all Total score: 2 Depression Screening Interpretation: Negative Depression Screening Done: Yes 98482 - PHQ-9 Billing: Yes Source: Developed by Drs. Mark Quintanilla, Isabel Hood, Hoang Jerome and colleagues, with an educational gi from [employer]. Thrive Questionnaire Date Thrive assessed: 09/23/24 I am a: Patient What is your living situation today?: I have a steady place to live Within the past 12 months, did the food you bought not last and you didn't have the money to get more?: Never true Within the past 12 months, did you worry whether your food would run out before you got money to buy more?: Never true Do you have trouble paying for medicines?: No Do you have trouble getting transportation to medical appointments?: No Do you have trouble paying your heating and electricity bill?: No Do you have trouble taking care of your child, family member or friend?: No Do you have trouble with day-to-day activities such as bathing, preparing meals, shopping, managing finances, etc.?: No Are you currently unemployed and looking for a job?: No Are you interested in more education?: No Please select the resources that you would like help with: None Currently or been in a relationship where the following occur: No concerns reported THRIVE Score: 0 AUDIT C Alcohol Use Questionnaire (AUDIT-C) 1. How often do you have a drink containing alcohol?: Never 3. How often do you have six or more drinks on one occasion?: Never Total Score: 0 Score Reviewed/Action Taken: Yes YANNICK-7 AMB Questionnaire YANNICK-7 Date YANNICK - 7 assessed: 09/23/24 Feeling nervous, anxious, or on edge: 0 = Not at all Not being able to stop or control worryin = Not at all Worrying too much about different things: 0 = Not at all Trouble relaxin = Not at all Being so restless that it is hard to sit still: 0 = Not at all Becoming easily annoyed or irritable: 0 = Not at all Feeling afraid as if something awful might happen: 0 = Not at all Total YANNICK-7 score (0-4 normal; 5-9 mild; 10-14 moderate; 15-21 severe): 0 Source: Developed by Drs. Mark Quintanilla, Isabel Hood, Hoang Jerome and colleagues, with an educational gi from [employer]. YANNICK-7 Assessment Billing YANNICK-7 Assessment Tool: YANNICK-7 Assessment 56132 Review of Systems Const Details: Denies chills, Denies fatigue, Denies fever(s), Denies headache(s) and Denies weakness HEENT Denies change in vision, Denies dizziness, Denies headache(s), Denies hearing loss, Denies nasal congestion, Denies sinus pain, Denies sinus pressure and Denies sore throat Card Denies chest pain, Denies lightheadedness, Denies dyspnea and Denies other (palpitations) Resp Denies cough, Denies dyspnea and Denies wheezing GI Denies abdominal pain, Denies melena, Denies hematochezia, Denies change in bowel habits, Denies dyspepsia and Denies nausea Denies hematuria and Denies dysuria Musc Denies abnormal gait, Denies myalgias, Denies arthralgias, Denies numbness and Denies tingling Skin/Breast Denies rash, Denies unusual bruising and Denies wounds Neuro Denies abnormal gait, Denies dizziness, Denies headache(s), Denies memory loss, Denies numbness, Denies Sensory deficit (Neuro), Denies tingling and Denies weakness Psych Denies anxiety, Denies depression and Denies memory loss Endo Denies cold intolerance, Denies fatigue, Denies heat intolerance, Denies polydipsia and Denies polyuria Miguel Angel/Lymph Denies easy bleeding and Denies easy bruising Aller/Immun Denies wheezing Physical exam (Primary Care) Vital Signs: Last Vital Signs Temp 98.1 F 09/23/24 10:49 Pulse 72 09/23/24 10:49 Resp 16 09/23/24 10:49 BP 100/62 09/23/24 10:49 Pulse Ox 99 09/23/24 10:49 Oxygen Delivery Method Room Air 09/23/24 10:49 BMI result Body Mass Index 26.0 Tobacco/Smoking Status: Tobacco use Status Tobacco use date assessed 04/12/24 09/23/24 10:45 Patient Tobacco Use Status Never used Tobacco 09/23/24 10:45 e-Cigarette/Vaping Use Never Used 09/23/24 10:45 PHQ-9: PHQ-9 Score PHQ-9: Total score 2 09/23/24 10:48 Depression Screening Interpretation: Negative Thrive Assessment: Date of Thrive Assessment Date Thrive assessed 09/23/24 09/23/24 10:48 Currently or been in a relationship where the following occur: No concerns reported Const Other: General: no acute distress, well developed, alert and awake Nutritional Appearance: well nourished Orientation/consciousness: patient oriented x3 HENMT Head: Yes normocephalic and Yes atraumatic Ears: hearing grossly normal bilaterally and TM's normal bilaterally General nose exam: Normal external nose present and Normal nares present Mouth: Normal oral and palatal mucosa present and moist mucous membranes Teeth and gingiva: dentition normal Throat: Yes oropharynx normal Eyes Pupils: Equal, round and reactive pupils present and Pupil accommodation reflex normal EOM: EOMs intact bilaterally Neck Neck: Yes normal visual inspection, Yes no lymphadenopathy and Yes trachea midline Thyroid: Thyroid normal Carotids: no bruits Lymphatic: no lymphadenopathy noted Chest Chest palpation & inspection: normal inspection of the chest Resp Effort & Inspection: normal respiratory effort Auscultation: clear to auscultation bilaterally Cardio Rate: regular rate Rhythm: regular rhythm Heart sounds: S1 normal heart sound present, S2 normal heart sound present, no gallops, no murmurs and no rubs Bruits: no abdominal aortic bruits and no carotid bruits GI Palpation (GI): No Abdominal aortic bruit present, Soft to palpation, nontender, No hepatosplenomegaly present and No Rebound tenderness present Auscultation: normal bowel sounds General: Yes no CVA tenderness Back/Spine/Pelvis Back: no CVA tenderness Cervical Spine: cervical ROM normal and No Cervical spine tenderness Thoracic/Lumbar Spine: thoraco-lumbar ROM normal, No pain with thoraco-lumbar ROM, No thoracic spinal tenderness and No lumbar spinal tenderness Skin General: warm and dry. Normal skin color. Normal skin turgor Lesions: no lesions Rashes: no rashes Trauma: no lacerations or abrasions Wounds: no wounds Nails: normal Neuro General: patient oriented x3, gait normal and CN's II-XI intact bilaterally Cranial nerves: Yes Equal, round and reactive pupils present Cognition (Neuro): normal cognition Gait exam (Neuro): Normal gait present Motor exam (neuro): 5/5 motor strength present throughout Sensory Exam: No Sensory deficit (Neuro) Deep tendon reflexes (DTR's): Right patellar reflex intensity grade: 2+ and Left patellar reflex intensity grade: 2+ Extrem General: Yes normal to inspection, No edema and No calf tenderness Psych Appearance: grossly normal Affect: normal affect Attitude: cooperative Thought process: Normal thought process present Coding Level of Care Code Est Pt Level 3 (33420) Est Pt Prev Care 18-39y(69312) Diagnoses Normal physical exam Z00.00 Allergies T78.40XA Nasal polyps J33.9 Sleep disturbance G47.9 Eye exam, routine Z01.00 Laboratory tests ordered as part of a complete physical exam (CPE) Z00.00 Additional Codes YANNICK-7 Assessment Billing - YANNICK-7 Assessment Tool: YANNICK-7 Assessment 44029 ([id number]) PHQ-9 - 80969 - PHQ-9 Billing: Yes ([id number]) Assessment & Plan Assessment & Plan (1) Normal physical exam: Code(s): Z00.00 - Encounter for general adult medical examination without abnormal findings Category: Medical Plan: No significant functional limitations noted Healthy diet and routine exercise encouraged Advised to get lab work done and follow-up in 2-3 weeks for telehealth visit for labs review Return sooner with symptoms or concerns Verbalized understanding and agreed with the treatment plan (2) Allergies: Code(s): T78.40XA - Allergy, unspecified, initial encounter Category: Medical Plan: She has history of allergies which is refractory to antihistamines and Flonase. Her sleep is interrupted but her allergy symptoms. She was followed by ENT and arts administrator or manager. She was advised by [facility] ENT to have nasal polyps removed. She request referral to ENT for a follow-up May take an antihistamine such as Zyrtec or Claritin daily and use Flonase as needed Referred to ENT of [facility] Follow-up with worsening or new symptoms Verbalized understanding and agreed with treatment plan (3) Nasal polyps: Code(s): J33.9 - Nasal polyp, unspecified Category: Medical Plan: Plan as above (4) Sleep disturbance: Code(s): G47.9 - Sleep disorder, unspecified Category: Medical Plan: Reports as per HPI (5) Eye exam, routine: Code(s): Z01.00 - Encounter for examination of eyes and vision without abnormal findings Category: Medical Plan: Her last eye exam was 2-3 years ago Referred to Ophthalmology for routine eye exam (6) Laboratory tests ordered as part of a complete physical exam (CPE): Code(s): Z00.00 - Encounter for general adult medical examination without abnormal findings Category: Medical Plan: Fasting labs ordered as part of a complete physical exam. Advised to fast for at least 10 hours before getting labs drawn. May drink water Verbalized understanding and agreed with treatment plan. Orders: Orders Complete Blood Count Auto Diff Today Z00.00 - Encounter for general adult medical examination without abnormal findings Comprehensive [place]. Panel Fast Today Z00.00 - Encounter for general adult medical examination without abnormal findings Lipid Panel Today Z00.00 - Encounter for general adult medical examination without abnormal findings TSH reflex Free T4 Today Z00.00 - Encounter for general adult medical examination without abnormal findings UA CC w/rflx Micro + Cult Today Z00.00 - Encounter for general adult medical examination without abnormal findings Referrals Ophthalmology Referral Z01.00 - Encounter for examination of eyes and vision without abnormal findings Ear/Nose/Throat Referral J33.9 - Nasal polyp, unspecified, T78.40XA - Allergy, unspecified, initial encounter
[2024-09-23 10:49] VITALS: BP 100/62; PULSE 72; RESP 16; TEMP 36.7; O2SAT 99; BMI 26.0
== END 2024-09-23 11:19 | disposition home or self-care (01) ==
PROVIDERS: PCP Nurse Practitioner Family; Visit Provider Nurse Practitioner Family
DX: Z00.00 Encounter for general adult medical examination without abnormal findings (principal); J33.9 Nasal polyp, unspecified; T78.40XA Allergy, unspecified, initial encounter; G47.9 Sleep disorder, unspecified

== ENCOUNTER → 2024-09-23 10:39 | Outpatient (BNVA) | payer OTHER, SELFPAY | PROVIDERS: PCP Nurse Practitioner Family; Visit Provider Nurse Practitioner Family | DX: Z00.01 Encounter for general adult medical examination with abnormal findings (principal); T78.40XA Allergy, unspecified, initial encounter; J33.9 Nasal polyp, unspecified; G47.9 Sleep disorder, unspecified | CPT/HCPCS: 96127; 99212 ==

== ENCOUNTER 2024-10-09 08:08 | Outpatient (REF) | payer OTHER, SELFPAY ==
[2024-10-09 10:10] LABS: MANUAL DIFF FLAG NO
[2024-10-09 10:33] LABS: Basophils Percent Auto 0.4 % (0-2); Eosinophils Absolute Auto 0.1 X10*3/uL (0.0-0.4); Eosinophils Percent Auto 1.2 % (0-4); Hemoglobin 12.7 g/dl (12.0-16.0); Imm Gran Abs Auto 0.03 X10*3/uL (0.00-0.03); Imm Gran Pct Auto 0.4 % (0.0-0.4); Lymphocytes Absolute Auto 1.7 X10*3/uL (1.2-4.9); Lymphocytes Percent Auto 24.7 % (20-40); Mean Corpuscular HGB Conc 33.4 g/dl (31.0-35.0); Mean Corpuscular Hemoglobin 30.5 pg (27.0-33.0); Mean Corpuscular Volume 91.1 fL (80.0-98.0); Mean Platelet Volume 11.4 fL (9.4-12.3); Monocytes Absolute Auto 0.5 X10*3/uL (0.1-1.2); Monocytes Percent Auto 6.9 % (2-11); Neutrophils Absolute Auto 4.6 x10*3/uL (2.0-8.3); Neutrophils Percent Auto 66.4 % (45-73); Platelet Count 273 X10*3/uL (160-400); Red Blood Count 4.17 X10*6/uL (4.20-5.50); Red Cell Distribution Width 12.2 % (11.0-16.0); White Blood Count 6.9 X10*3/uL (4.8-10.8)
[2024-10-09 11:07] LABS: Appearance Urine Turbid; Color Urine Yellow; Glucose Urine UA Negative (Negative); Leukocyte Esterase Urine Negative (Negative); Nitrite Urine Negative (Negative); PH 5.5 (5.0-9.0); Specific Gravity - Urine 1.025 (1.005-1.025); Urine Blood Negative (Negative); Urine Ketones Negative (Negative); Urine Protein Negative (Neg-Trace)
[2024-10-09 11:15] LABS: Alanine Aminotransferase 40 U/L (0-31); Albumin Level 4.1 g/dL (3.5-5.0); Alkaline Phosphatase 54 U/L (39-117); Anion Gap 10 (12-20); Aspartate Amino Transferase 31 U/L (5-31); Bilirubin Total 0.4 mg/dL (0.0-1.0); Blood Urea Nitrogen 18 mg/dL (9-16); Calcium 8.3 mg/dL (8.4-10.2); Carbon Dioxide 25 mmol/L (22-29); Chloride 109 mmol/L (96-108); Cholesterol 186 mg/dL (<200); Estimated Glomerular Filt Rate > 60; Glucose Fasting 109 mg/dL (60-99); HDL Cholesterol 37 mg/dL (>40); LDL Cholesterol Calculated 113 mg/dL (<100); Potassium 3.9 mmol/L (3.3-5.1); Sodium 140 mmol/L (135-145); Total Protein 7.1 g/dL (6.5-8.0); Triglycerides 181 mg/dL (<150)
== END 2024-10-09 08:09 | disposition home or self-care (01) ==
LOC: HO.HMGCLDS 08:08
PROVIDERS: PCP Nurse Practitioner Family; Visit Provider Nurse Practitioner Family
DX: Z00.00 Encounter for general adult medical examination without abnormal findings (principal)
CPT/HCPCS: 36415; 80053; 80061; 81003; 84443; 85025

== ENCOUNTER 2024-10-15 08:46 | Outpatient (AMB) | payer OTHER, SELFPAY ==
--- NOTE | 2024-10-15 08:53 | MHC.OFFWIV ---
Intake Vital Signs 10/15/24 08:54 Height 5 ft Weight 132 lb BMI 25.8 BP 108/66 Blood Pressure Location Rt brachial Position Sitting Pulse 86 Pulse Source Pulse Oximeter Temp 98.4 F Temp Source Oral Pulse Oximetry (%) 98 Oxygen Delivery Method Room Air Intake Visit Reasons: EP ?Ear infection/cold Intake Note: Patient here for nasal congestion and left ear pain that started yesterday. Patient Tobacco Use Status: Never used Tobacco Allergies No Known Allergies [No Known Allergies*] Allergy (Verified 10/15/24 08:55) Do you need a note to return to daycare/school/sports/work: Yes HPI HPI Comments History of Present Illness Details This is a 34-year-old female with no stated past medical history presenting for evaluation of nasal congestion and left ear pain that she has had since Monday. Patient denies having a sore throat, cough, shortness for breath, fevers or chills. She has been taking Tylenol cold and sinus without relief of her symptoms, her last dose was yesterday. Patient is afebrile. 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 Current occupational exposures/hazards: No Cognitive needs: No Hearing needs: No Vision needs: Yes Review of Systems Const All systems reviewed & are unremarkable except as noted in HPI and below Denies chills and Denies fever(s) Eyes Reports no additional complaints ENT Reports no additional complaints, Reports otalgia (left ear), Denies facial pain and Reports sinus pressure Card Reports no additional complaints Resp Reports no additional complaints GI Reports no additional complaints Reports no additional complaints Musc Reports no additional complaints Skin/Breast Reports system reviewed and no additional complaints, except as documented Neuro Reports no additional complaints Psych Reports no additional complaints Endo Reports no additional complaints Miguel Angel/Lymph Reports no additional complaints Aller/Immun Reports no additional complaints Physical Exam Vital Signs: Last Vital Signs Temp 98.4 F 12/10/24 08:54 Pulse 86 10/15/24 08:54 BP 108/66 10/15/24 08:54 Pulse Ox 98 10/15/24 08:54 Oxygen Delivery Method Room Air 10/15/24 08:54 BMI result Body Mass Index 25.8 Const General: cooperative, healthy appearing, comfortable, no acute distress, alert and awake Nutritional Appearance: average body habitus and well nourished Orientation/consciousness: patient oriented x3 Limitations: no limitations HEENT Head: Yes normal to inspection and Yes normocephalic Ears: hearing grossly normal bilaterally, external ears normal, TM's normal bilaterally and EAC's normal General nose exam: Normal external nose present Face and sinus: No sinus tenderness Mouth: Normal oral and palatal mucosa present and moist mucous membranes Teeth and gingiva: dentition normal Throat: Yes posterior oropharynx normal Eyes General: appearance normal, both eyes and all related structures Neck Lymphatic: no lymphadenopathy noted Resp Effort & Inspection: normal respiratory effort, able to speak in complete sentences, no audible wheezes, no cough and no respiratory distress Auscultation: clear to auscultation bilaterally Cardio Rate: regular rate Rhythm: regular rhythm Skin General skin exam: no rashes or lesions noted Neuro General: patient oriented x3 Psych Appearance: grossly normal Mental Status: mental status grossly normal Insight: Good insight present (Psych) Judgement: Good judgement present (Psych) Assessment & Plan Assessment & Plan (1) Acute upper respiratory infection: Comment: There is no evidence of an acute otitis media. Patient will be discharged home with supportive measures. Code(s): J06.9 - Acute upper respiratory infection, unspecified Plan: Ibuprofen or Tylenol as needed for discomfort, increase clear fluids daily and rest as tolerated. Work note provided for 2 days. Coding Level of Care Code New Pt Level 3 (91792) Diagnoses Acute upper respiratory infection J06.9 Time Spent (min) 20
[2024-10-15 08:54] VITALS: BP 108/66; PULSE 86; TEMP 36.9; O2SAT 98; BMI 25.8
--- OUTSIDE RECORDS SUMMARY | 2024-10-16 19:05 | XMS_ITS | Data Portability ---
Author Organization [place] [facility], Allergy Address [address] [place] [phone] Care Team Providers Care Advanced Practice Provider Name Role Phone CHIARA MICHELLE Primary Care Provider [phone] Assessment Encounter Date Assessment Date Assessment LastModified by Organization Details LastModified Time 06/06/2024 06/06/2024 Patient has hypertrophy of the inferior turbinates with symptomatic limitation of airflow. Discussed previous attempts at medical management which have not been successful. They would now like to proceed with surgical intervention with bilateral inferior turbinate reduction under general anesthesia. The surgical risks of these procedures include, though not limited to, loss of smell and taste, bleeding, incomplete relief of nasal obstruction, atrophic rhinitis, tooth or lip numbness, infection. During the surgery splints are often inserted into the nasal passage to help the healing process. The splints will remain in place until the first postoperative visit when they will be removed in the office. The splints are a soft clear silicone material that have tubes to allow airflow. Beginning on postoperative day 1 it is recommended to use nasal saline several times daily to keep the splint clean. We also discussed the anesthetic risks. All questions were answered and patient/guardian fully understands the risks, benefits and alternatives as well as the limitation of surgery. This will be scheduled at a mutually convenient time in the near future. [email or web address] Not available 06/06/2024 15:40:13 Plan of Treatment Reminders Order Date Submit Date Provider Last Modified By Organization Details Last Modified Time Details Appointments None recorded. Lab None recorded. Referral None recorded. Procedures None recorded. Surgeries submucous resection inferior turbinate (SURG) 2023 024 9 Not available 08/01/202 4 16:16:39 Imaging None recorded. Medication Orders None recorded. Patient TargetsNo targets recorded. Patient InstructionsNo instructions recorded. Reason for Referral None Reported. Results Created Date Observation Date Name Description Value Unit Range Abnormal Flag Note LastModifiedBy Organization Detail LastModifiedTime 06/26/20 24 01/08/2024 heatheri ng/isael lemons tic resul t No observ ation record ed. [email or web address] Not Available 03:47:57 Result Notes None recorded. Problems Name Problem SNOMED Code Status Onset Date Resolution Date Notes Provider Name and Address Organization Details Recorded Time Acute serous otitis media of right ear [id number] Active 2017 Acute serous otitis media, right ear; Note: Date Diagnosed : 05/21/2018 11:01 AM (H65.01) Not Available [facility] 4 03:03:43 Hypertrop hy of nasal turbinate s 24726810 Active 2014 inf turb reduction 07/2015 Dr Rito CONTRERAS MD [address] [place] [address],[place] [address], [place], [phone] , [facility] - [facility] 4 12:31:28 Follow-up visit Active 2014 Encounter for follow-up examinati on after completed treatment for condition s other than malignant neoplasm; Note: Date Diagnosed : 09/14/2015 11:40 AM (Z09) Not Available [facility] 4 03:03:42 Acute maxillary sinusitis 45781564 Active 2015 Acute maxillary sinusitis , unspecifi ed; Note: Date Diagnosed : 6 12:34 PM (J01.00) Not Available [facility] 4 03:03:43 Allergic rhinitis 37598890 Active 2018 CHLOE CONTRERAS MD [address] [facility],[place] [address], [place], [phone] , [facility] - [facility] 4 12:31:04 Disorder of left Eustachia n tube [id number] 47967 Active 2015 Other specified disorders of Eustachia n tube, left ear; Note: Date Diagnosed : 6 11:56 AM (H69.82) Not Available [facility] 4 03:03:41 Acute suppurati ve otitis media without spontaneo us rupture of ear drum 49167891 Active 2017 Acute suppurati ve otitis media without spontaneo us rupture of ear drum, left ear; Note: Date Diagnosed : 05/21/2018 11:01 AM (H66.002) Not Available [facility] 4 03:03:44 Nasal congestio n 28235747 Active 2017 Nasal congestio n; Note: Date Diagnosed : 8 12:20 PM (R09.81) Not Available [facility] 4 03:03:44 Diffuse otitis externa 13020047 Active 2018 Diffuse otitis externa, right ear; Note: Date Diagnosed : 03/07/2019 11:33 AM (H60.311) Not Available [facility] 4 03:03:41 Otalgia of right ear 7069632335 Active 2018 Otalgia, right ear; Note: Date Diagnosed : 03/07/2019 11:34 AM (H92.01) Not Available [facility] 4 03:03:42 Deviated nasal septum 566062646 Active 2014 Septal deviation / Deflectio n; Condition : uncontrol led Note: Date Diagnosed : 4 9:36 AM (470) ; Start Date : 4 Deviate d nasal septum; Note: Date Diagnosed : 07/21/2015 11:00 AM (J34.2) [mapped from ICD9 code: 470] Not Available [facility] 4 03:03:43 Chronic rhinitis 38789221 Active 2015 Chronic rhinitis; Note: Date Diagnosed : 12/28/2015 10:14 AM (J31.0) Not Available [facility] 4 03:03:43 Problem Notes None recorded. Procedures Surgical History Date Name Laterality Status Provider Name and Address Organization Details Recorded Time 5 Resect inferior turbinate completed CHLOE CONTRERAS MD [address] [place] [address], [phone], [facility] - [facility] 05/13/2024 12:25:19 Imaging Results Imaging Date Name Status [facility]Modified by [facility] Details LastModified Time 01/08/2024 imaging/diag nostic result completed [email or web address] Information not available 06/26/2024 03:47:57 Procedure Notes None recorded. Medical Equipment None Reported. Medications Name Sig Start Date Stop Date Status Note LastModified by Organization Details LastModified Time Singulair 10 mg tablet Take 1 tablet by mouth 2023 active Medicati on ID: [id number] B rand Name: Magy r Send Method: E-Prescr ibed Sub s Allowed: subs OK Speci al Instruct ion: Take 1 tablet by mouth every day in the evening. Do not start until after completi ng predniso ne course M edicatio nGeneric Name: Magy r Not Available Not Available Not Available amoxicill in 500 mg capsule 1 capsule by mouth 2015 active Medicati on ID: [id number] D uration Value: 10 Prescri bed By Name: RODDY Bhagat nd Name: amoxicil kemi Send Method: E-Prescr ibed Sub s Allowed: subs OK Medic ationGen ericName : amoxicil kemi Not Available Not Available Not Available metformin 500 mg tablet 02/18 completed Medicati on ID: [id number] D uration Value: 30 Reason: () Brand Name: metformi n Send Method: E-Prescr ibed Sub s Allowed: subs OK Speci al Instruct ion: take 1 tablet by mouth twice a day Medi cationGe nericNam e: metformi n Not Available Not Available Not Available azithromy ravinder 250 mg tablet TAKE 2 TABLETS BY MOUTH TODAY, THEN TAKE 1 TABLET DAILY FOR 4 DAYS DIRECTED active Not Available Not Available No t Available clarithro mycin 500 mg tablet 1 tablet by mouth 2017 active Medicati on ID: [id number] D uration Value: 14 Prescri bed By Name: RODDY Melgoza nd Name: clarithr omycin S end Method: E-Prescr ibed Sub s Allowed: subs OK Medic ationGen ericName : clarithr omycin Not Available Not Available Not Available FreeStyle Lancets 28 gauge 02/18 completed Medicati on ID: [id number] D uration Value: 25 Reason: () Brand Name: FreeStyl e Lancets Send Method: E-Prescr ibed Sub s Allowed: subs OK Speci al Instruct ion: USE TO TEST GLUCOSE 4 TIMES DAILY Me dication GenericN shasta: FreeStyl e Lancets Not Available Not Available Not Available metronida zole 0.75 % (37.5 mg/5 gram) vaginal gel 10/21 completed Medicati on ID: [id number] Dur ation Value: 17 Reason: () Brand Name: metronid azole Se nd Method: E-Prescr ibed Sub s Allowed: subs OK Speci al Instruct ion: insert 1 applicat orful vaginall y at bedtime 2 TIMES A WEEK for 30... (REFER TO PRESCRIP TION NOTES). Medicati onGeneri cName: metronid azole Not Available Not Available Not Available prednison e 20 mg tablet by mouth 2023 active Medicati on ID: [id number] B rand Name: predniso ne Send Method: E-Prescr ibed Sub s Allowed: subs OK Speci al Instruct ion: Take 3 tabs daily for 3 days then 2 tabs daily for 3 days then 1 tabs daily for 3 days then stop Med icationG enericNa me: predniso ne Not Available Not Available Not Available metronida zole 500 mg tablet 12/28 completed Medicati on ID: [id number] Du ration Value: 5 Reason: () Brand Name: metronid azole Se nd Method: E-Prescr ibed Sub s Allowed: subs OK Speci al Instruct ion: take 1 tablet by mouth twice a day for 5 days Med icationG enericNa me: metronid azole Not Available Not Available Not Available amoxicill in 500 mg tablet TAKE 1 TABLET BY MOUTH EVERY 8 HOURS active Not Available Not Available No t Available progester one micronize d 200 mg capsule 02/18 completed Medicati on ID: [id number] D uration Value: 30 Reason: () Brand Name: progeste nohemi microniz ed Send Method: E-Prescr ibed Sub s Allowed: subs OK Speci al Instruct ion: insert 1 capsule vaginall y at bedtime Medicati onGeneri cName: progeste nohemi stafford ed Not Available Not Available Not Available Zaditor 0.025 % (0.035 %) eye drops 2016 active Medicati on ID: [id number] D uration Value: 30 Prescri bed By Name: RODDY Melgoza nd Name: Zaditor Send Method: E-Prescr ibed Sub s Allowed: subs OK Speci al Instruct ion: 2 drops in each eye bid as needed M edicatio nGeneric Name: Zaditor Not Available Not Available Not Available azelastin e 137 mcg (0.1 %) nasal spray USE 2 SPRAYS NASALLY TWICE A DAY DIRECTED active Not Available Not Available No t Available epinephri ne 0.3 mg/0.3 mL injection , auto-inje ctor 03/02 completed Medicati on ID: [id number] D uration Value: 30 Brand Name: epinephr ine Send Method: E-Prescr ibed Sub s Allowed: subs OK Speci al Instruct ion: INJECT 1 PEN INTRAMUS CULARLY A SINGLE DOSE IF NEEDED M edicatio nGeneric Name: epinephr ine Not Available Not Available Not Available Nasonex 50 mcg/actua tion Cooter 2 spray into both nostrils 10/21 completed Medicati on ID: [id number] Du ration Value: 30 Prescri bed By Name: Julito Martinez rd, Waylon Gutiérrez nd Name: Nasonex Send Method: E-Prescr ibed Sub s Allowed: subs OK Medic ationGen ericName : Nasonex Not Available Not Available Not Available Percocet 5 mg-325 mg tablet 1 tablet by mouth 12/28 completed Medicati on ID: [id number] Pr escribed By Name: Eliseo Veras MD Brand Name: Percocet Send Method: E-Prescr ibed Sub s Allowed: subs OK Medic ationGen ericName : Percocet Not Available Not Available Not Available ParaGard T 380A 380 square mm intrauter ine device 03/02 completed Medicati on ID: [id number] D uration Value: 1 Brand Name: ParaGard T 380A Sen d Method: E-Prescr ibed Sub s Allowed: subs OK Speci al Instruct ion: BRING TO OFFICE FOR INSERTIO N Medica tionGene ricName: ParaGard T 380A Not Available Not Available Not Available ipratropi um bromide 21 mcg (0.03 %) nasal spray INSTILL 2 SPRAYS INTO EACH NOSTRIL 2 TO 3 TIMES A DAY NEEDED FOR ALLERGY SYMPTOMS FOR 7 DAYS active Not Available Not Available No t Available amoxicill in 875 mg-potass ium clavulana te 125 mg tablet TAKE 1 TABLET BY MOUTH TWICE A DAY active Not Available Not Available No t Available Benadryl 25 mg capsule 12/28 completed Medicati on ID: [id number] Re ason: () Brand Name: Benadryl Send Method: E-Prescr ibed Sub s Allowed: subs OK Medic ationGen ericName : Benadryl Not Available Not Available Not Available neomycin- polymyxin -hydrocor t 3.5 mg-10,000 unit/mL-1 % ear drops,juan p INSTILL 4 DROPS INTO THE EAR(S) EVERY 8 HOURS FOR 10 DAYS active Not Available Not Available No t Available Ciprodex 0.3 %-0.1 % ear drops,juan pension 4 drop 2018 active Medicati on ID: [id number] D uration Value: 7 Prescri bed By Name: Eliseo Veras MD Brand Name: Ciprodex Send Method: E-Prescr ibed Sub s Allowed: subs OK Medic ationGen ericName : Ciprodex Not Available Not Available Not Available nitrofura ntoin monohydra te/macroc rystals 100 mg capsule 12/28 completed Medicati on ID: [id number] Du ration Value: 7 Reason: () Brand Name: nitrofur antoin monohyd/ m-cryst Send Method: E-Prescr ibed Sub s Allowed: subs OK Speci al Instruct ion: take 1 capsule by mouth every 12 hours for 7 days Med icationG enericNa me: nitrofur antoin monohyd/ m-cryst Not Available Not Available Not Available FreeStyle Lite Strips 02/18 completed Medicati on ID: [id number] D uration Value: 25 Reason: () Brand Name: FreeStyl e Lite Strips S end Method: E-Prescr ibed Sub s Allowed: subs OK Speci al Instruct ion: USE TO TEST GLUCOSE 4 TIMES DAILY Me dication GenericN shasta: FreeStyl e Lite Strips Not Available Not Available Not Available levocetir izine 5 mg tablet TAKE 1 TABLET BY MOUTH EVERY DAY active Not Available Not Available No t Available azelastin e 205.5 mcg (0.15 %) nasal spray Cooter 2 spray into both nostrils twice a day 2022 active Medicati on ID: [id number] D uration Value: 30 Brand Name: azelasti ne Send Method: E-Prescr ibed Sub s Allowed: subs OK Speci al Instruct ion: Use twice daily, 2 sprays each side of nose. Me dication GenericN shasta: azelasti ne Not Available Not Available Not Available Probiotic and Acidophil us 300 million cell-250 mg capsule 10/21 completed Medicati on ID: [id number] [place] son: () Brand Name: Probioti c & Acidophi yanelis Send Method: E-Prescr ibed Sub s Allowed: subs OK Medic ationGen ericName : Probioti c & Acidophi yanelis Not Available Not Available Not Available TRANSPORTATION REFRIGERATION TECHNICIAN-HEME One 02/18 completed Medicati on ID: [id number] D uration Value: 30 Reason: () Brand Name: TRANSPORTATION REFRIGERATION TECHNICIAN-HEME One Send Method: E-Prescr ibed Sub s Allowed: subs OK Speci al Instruct ion: take 1 capsule by mouth once daily Me dication GenericN shasta: TRANSPORTATION REFRIGERATION TECHNICIAN-HEME One Not Available Not Available Not Available Nasacort 55 mcg nasal spray aerosol Cooter 2 spray into both nostrils once a day 2022 active Medicati on ID: [id number] D uration Value: 30 Brand Name: Nasacort Send Method: E-Prescr ibed Sub s Allowed: subs OK Medic ationGen ericName : Nasacort Not Available Not Available Not Available Flonase Allergy Relief 50 mcg/actua tion nasal spray,juan pension 2 puff into both nostrils 2018 active Medicati on ID: [id number] D uration Value: 30 Prescri bed By Name: Eliseo Veras MD Brand Name: Flonase Allergy Relief S end Method: E-Prescr ibed Sub s Allowed: subs OK Medic ationGen ericName : Flonase Allergy Relief Not Available Not Available Not Available Vitals Date Recorded Body height Body mass index (BMI) Body weight Provider Name and Address Organization Details Last Updated DateTime 06/06/2024 152.4 cm 25 kg/m2 75395.82 g Angie Min [place] [facility] 06/06/2024 15:20:28 Social History None recorded. Functional Status None recorded. Mental Status None recorded. Family History Nothing Reported. Medical History No medical history recorded. Gynecological HistoryNo gynecological history recorded. Obstetrics History GPAL:G 0 P 0 0 0 0 Past Encounters Encounter ID Performer Location Encounter Start Date Encounter Closed Date Diagnosis/Indication Diagnosis SNOMED-CT Code Diagnosis ICD10 Code [id number] CHLOE CONTRERAS MD [facility] [address] [phone] 06/06/2024 15:10:14 06/06/2024 15:43:31 Allergic rhinitis 69763262 J30.89 Hypertroph y of nasal turbinates 73798714 J34.3 Health Concerns Section Related Observation LastModified by Organization Detai ls LastModified Time None Recorded Concern Status LastModified by Organization Details LastModified Time None Recorded Advance Directives Directive None Recorded Payers Encounter Date Sequence Insurance Name Policy Number Policy [place] Covered Member ID [place] Member ID Guarantor Name 06/06/2024 1 [employer] - HEALTH NET PLAN (MEDICAID HMO) Benita Castaneda [id number] Benita Castaneda Notes Date Note Type Note Provider Name and Address Organization Details Recorded Time text/html Patient of Dr Cortes, last seen 03/12/24nasal congestion, and decreased hearing after URI March 2024 medication regimen in past with trials ofnasacort - helpfulastelin - stopped, not sure whyprednisone - helped, side effect of mood and sleep disturbancesingulair - side effect of mood disturbancezyrtec - no helpimmunotherapy SCIT [phone] - stopped during pregnancies, no change after 2 yrs of shot01/08/24 CT sinus xoran turbinate hypertrophy. Other notable findings included hypoplastic frontals, relatively hypoplastic maxillary sinuses with mild mucosal thickening and otherwise aerated paranasal sinuses. 07/31/[address] Veras/18/09 BMT, T&A in [place] current nasal regimen of flonase seems to help slight CHLOE CONTRERAS MD [address] [place] [address], [place], [phone], [place] [facility] 06/06/2024 15:41:09 OBGyn Episode No OBEpisode recorded.
== END 2024-10-15 09:22 | disposition home or self-care (01) ==
PROVIDERS: PCP Nurse Practitioner Family; Visit Provider Physician Assistant
DX: J06.9 Acute upper respiratory infection, unspecified (principal)

== ENCOUNTER → 2024-10-15 08:46 | Outpatient (BNVA) | payer MEDICAID, SELFPAY | PROVIDERS: PCP Nurse Practitioner Family; Visit Provider Physician Assistant | DX: J06.9 Acute upper respiratory infection, unspecified (principal) | CPT/HCPCS: 99202 ==

== ENCOUNTER 2024-10-17 14:16 | Outpatient (AMB) | payer OTHER, SELFPAY ==
--- NOTE | 2024-10-17 14:14 | A.OFFPC_ITS ---
Intake Visit Reasons: Telehealth 2-3 wks labs Intake Note: patient here for telehealth med review Director Operations Broadcast Required: No Is last menstrual period known: Yes Last menstrual period: 09/27/24 Post menopausal: No Patient : No Allergies No Known Allergies [No Known Allergies*] Allergy (Verified 10/17/24 14:15) Tobacco use date assessed: 04/12/24 Dental Screening Dental Screen Date: 09/23/24 HPI HPI Comments History of Present Illness Details The patient is a 34-year-old female presenting for telehealth follow-up to review recent laboratory test results. The fasting glucose level is slightly elevated at 109 mg/dL, which was also noted as slightly elevated at 111 mg/dL in April 2022. Previous hemoglobin A1c in April 2022 was 5.1%, indicative of normal glycemic control. Calcium level is currently documented at 8.3 mg/dL, slightly below the normal range of 8.4 to 10.2 mg/dL. Alanine aminotransferase (ALT) is mildly elevated at 40 U/L and was previously 37 U/L in April 2022, suggesting persistent elevation. Triglyceride levels have increased to 181 mg/dL from 149 mg/dL in October 2023 which is above the threshold of 150 mg/dL. The total cholesterol level remains within the normal range at 186 mg/dL. However, LDL cholesterol is borderline elevated at 113 mg/dL, and HDL cholesterol is low at 37 mg/dL, which has improved from 32 mg/dL recorded a year ago. She offers no complaints and denies acute symptoms at this time. 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 Mark Quintanilla, Isabel Hood, Hoang Jerome and colleagues, with an educational gi from [employer]. Review of Systems Const Details: Const Denies chills, Denies fatigue, Denies fever(s), Denies headache(s) and Denies weakness ENT Denies dizziness and Denies headache(s) Card Denies chest pain, Denies lightheadedness, Denies dyspnea and Denies other (Palpitations) Resp Denies cough, Denies dyspnea, Denies wheezing and Denies other ( shortness of breath) GI Denies abdominal pain, Denies melena, Denies hematochezia, Denies change in bowel habits, Denies dyspepsia and Denies nausea Denies hematuria and Denies dysuria Musc Denies abnormal gait, Denies myalgias, Denies arthralgias, Denies numbness and Denies tingling Skin/Breast Denies rash, Denies unusual bruising and Denies wounds Neuro Denies abnormal gait, Denies dizziness, Denies headache(s), Denies memory loss, Denies numbness, Denies Sensory deficit (Neuro), Denies tingling and Denies weakness Psych Denies anxiety, Denies depression, Denies memory loss Endo Denies cold intolerance, Denies fatigue, Denies heat intolerance, Denies polydipsia and Denies polyuria Aller/Immun Denies wheezing Physical exam (Primary Care) Tobacco/Smoking Status: Tobacco use Status Tobacco use date assessed 04/12/24 10/17/24 14:17 Patient Tobacco Use Status Never used Tobacco 10/17/24 14:17 e-Cigarette/Vaping Use Never Used 10/17/24 14:17 Thrive Assessment: Date of Thrive Assessment Date Thrive assessed 09/23/24 10/17/24 14:17 Const Other: Telehealth visit. No physical exam. Telehealth Telehealth Telehealth Platform: Telephone Location of provider rendering services: practice address Location of patient: address on file Patient Identification confirmed using: Name, : Yes Telehealth method: voice only Patient verbally consented to treatment: Yes Patient verbally consented to billing insurance company: Yes Patient informed of any privacy concerns related to visit: Yes Coding Level of Care Code Tele Est Pt Level 3 (04587) Diagnoses Elevated fasting blood sugar R73.01 Dyslipidemia E78.5 Elevated ALT measurement R74.01 Hypocalcemia E83.51 Time Spent (min) 15 Assessment & Plan Assessment & Plan (1) Elevated fasting blood sugar: Code(s): R73.01 - Impaired fasting glucose Category: Medical Plan: Repeat fasting blood glucose test to confirm if it remains elevated; consider ch ecking hemoglobin A1c if elevated. (2) Dyslipidemia: Code(s): E78.5 - Hyperlipidemia, unspecified Category: Medical Plan: Advised to limit foods high in saturated fat and avoid foods high in trans fat. Routine exercise encouraged. (3) Elevated ALT measurement: Code(s): R74.01 - Elevation of levels of liver transaminase levels Category: Medical Plan: Likely hepatic steatosis. Monitor ALT levels as they are only slightly elevated; lifestyle modifications recommended. (4) Hypocalcemia: Code(s): E83.51 - Hypocalcemia Category: Medical Plan: Re-evaluate calcium level and check vitamin D level to explore potential causes of hypocalcemia. Plan During today's visit, I discussed with the patient the results of her recent laboratory tests. Her fasting glucose level is slightly elevated, which necessitates a repeat test to determine persistent elevation, followed by a potential A1c evaluation. Slightly low calcium levels would warrant further assessments, including vitamin D levels. Elevated ALT may be related to possible hepatic fatty deposits, and vigilance through a healthy diet is advised. To manage dyslipidemia, particularly hypertriglyceridemia and borderline elevated LDL, I emphasized the importance of limiting saturated and trans fats, and actively engaging in routine exercise. Follow-up labs and further consultations were planned for two months hence, with instructions to perform tests a few days before the appointment. The patient expressed understanding and agreement with the outlined plan. Orders: Orders Lipid Panel 2 Months E78.5 - Hyperlipidemia, unspecified Glucose Fasting Today R73.01 - Impaired fasting glucose Calcium Today E83.51 - Hypocalcemia Vitamin D 25-OH Total Today E83.51 - Hypocalcemia Patient Instructions: - Schedule a fasting blood test 2 to 3 days before the next telehealth appointment in 2-3 weeks. - Follow dietary recommendations to reduce intake of saturated and trans fats. - Increase physical activity with regular exercise. - Maintain a record of any symptoms or changes in health. - Await a call from the lead front desk agent to schedule the next appointment. Patient was informed and verbally consented to the use of an ambient scribe for clinic note documentation during this visit.
== END 2024-10-17 15:04 | disposition home or self-care (01) ==
LOC: HO.HMCFM 14:16
PROVIDERS: PCP Nurse Practitioner Family; Visit Provider Nurse Practitioner Family
DX: R73.01 Impaired fasting glucose (principal); E78.5 Hyperlipidemia, unspecified; R74.01 Elevation of levels of liver transaminase levels; E83.51 Hypocalcemia

== ENCOUNTER 2024-12-17 08:01 | Outpatient (REF) | payer OTHER, SELFPAY ==
--- OUTSIDE RECORDS SUMMARY | 2024-12-17 08:05 | XMS_ITS | Data Portability ---
Author Organization [place] - [facility], Allergy Address [address] [place] [phone] Care Team Providers Care Supply Specialist Name Role Phone CHIARA MICHELLE Primary Care Provider [phone] Assessment Encounter Date Assessment Date Assessment LastModified [...] submucous resection inferior turbinate (SURG) 2023 024 [id number] Not available 08/01/202 4 16:16:39 Imaging [...] Acute serous otitis media of right ear [id number] Active 2017 Acute serous otitis media, right ear; Note: Date Diagnosed : 05/21/2018 11:01 AM (H65.01) Not Available [facility] 4 03:03:43 Hypertrop hy of nasal turbinate s 22153483 Active 2014 inf turb reduction 07/2015 Dr Rito CONTRERAS MD [address] [place] [address],[place] [address], [place], [phone] , [facility] - [facility] 4 12:31:28 Follow-up visit Active 2014 Encounter for follow-up examinati on after completed treatment for condition s other than malignant neoplasm; Note: Date Diagnosed : 09/14/2015 11:40 AM (Z09) Not Available [facility] 4 03:03:42 Acute maxillary sinusitis 21410033 Active 2015 Acute maxillary sinusitis , unspecifi ed; Note: Date Diagnosed : 6 12:34 PM (J01.00) Not Available [facility] 4 03:03:43 Allergic rhinitis 10882086 Active 2018 CHLOE CONTRERAS MD [address] [facility],[place] [address], [place], [phone] , [facility] - [facility] 4 12:31:04 Disorder of left Eustachia n tube [id number] 63932 Active 2015 Other specified disorders of Eustachia n tube, left ear; Note: Date Diagnosed : 6 11:56 AM (H69.82) Not Available [facility] 4 03:03:41 Acute suppurati ve otitis media without spontaneo us rupture of ear drum 99277025 Active 2017 Acute suppurati ve otitis media without spontaneo us rupture of ear drum, left ear; Note: Date Diagnosed : 05/21/2018 11:01 AM (H66.002) Not Available [facility] 4 03:03:44 Nasal congestio n 20266839 Active 2017 Nasal congestio n; Note: Date Diagnosed : 8 12:20 PM (R09.81) Not Available [facility] 4 03:03:44 Diffuse otitis externa 64592127 Active 2018 Diffuse otitis externa, right ear; Note: Date Diagnosed : 03/07/2019 11:33 AM (H60.311) Not Available [facility] 4 03:03:41 Otalgia of right ear 8384565074 Active 2018 Otalgia, right ear; Note: Date Diagnosed : 03/07/2019 11:34 AM (H92.01) Not Available [facility] 4 03:03:42 Deviated nasal septum 684923163 Active 2014 Septal deviation / Deflectio n; Condition : uncontrol led Note: Date Diagnosed : 4 9:36 AM (470) ; Start Date : 4 Deviate d nasal septum; Note: Date Diagnosed : 07/21/2015 11:00 AM (J34.2) [mapped from ICD9 code: 470] Not Available [facility] 4 03:03:43 Chronic rhinitis 58188188 Active 2015 Chronic rhinitis; Note: Date Diagnosed : 12/28/2015 10:14 AM (J31.0) Not Available [facility] 4 03:03:43 Problem Notes None recorded. Procedures Surgical History Date Name Laterality Status Provider Name and Address Organization Details Recorded Time 5 Resect inferior turbinate completed CHLOE CONTRERAS MD [address] [place] [address], [phone], [facility] - [facility] 05/13/2024 12:25:19 Imaging Results Imaging Date Name Status [facility] by [facility] Details LastModified Time 01/08/2024 imaging/diag nostic result completed [email or web address] Information not available 06/26/2024 03:47:57 Procedure Notes None recorded. Medical Equipment None Reported. Medications Name Sig Start Date Stop Date Status Note LastModified by Organization Details LastModified Time Singulair 10 mg tablet Take 1 tablet by mouth 2023 active Medicati on ID: [id number] B rand Name: Magy r Send Method: [...] by mouth 2015 active Medicati on ID: 299032 D uration Value: 10 Prescri bed By Name: RODDY Bhagat nd Name: amoxicil kemi Send Method: E-Prescr ibed Sub s Allowed: subs OK Medic ationGen ericName : amoxicil kemi Not Available Not Available Not Available metformin 500 mg tablet 02/18 completed Medicati on ID: [id number] D uration Value: 30 Reason: () Brand [...] by mouth 2017 active Medicati on ID: 457213 D uration Value: 14 Prescri bed By Name: RODDY Melgoza nd Name: clarithr omycin S end Method: E-Prescr ibed Sub s Allowed: subs OK Medic ationGen ericName : clarithr omycin Not Available Not Available Not Available FreeStyle Lancets 28 gauge 02/18 completed Medicati on ID: 241140 D uration Value: 25 Reason: () Brand [...] by mouth 2023 active Medicati on ID: 486629 B rand Name: predniso ne Send Method: E-Prescr ibed Sub s Allowed: subs OK Speci al Instruct ion: Take 3 tabs daily for 3 days then 2 tabs daily for 3 days then 1 tabs daily for 3 days then stop Med icationG enericNa me: predniso ne Not Available Not Available Not Available metronida zole 500 mg tablet 12/28 completed Medicati on ID: 86909 Du ration Value: 5 Reason: () Brand [...] mg capsule 02/18 completed Medicati on ID: 407680 D uration Value: 30 Reason: () Brand Name: progeste nohemi microniz ed Send Method: E-Prescr ibed Sub s Allowed: subs OK Speci al Instruct ion: insert 1 capsule vaginall y at bedtime Medicati onGeneri cName: progeste nohemi stafford ed Not Available Not Available Not Available Zaditor 0.025 % (0.035 %) eye drops 2016 active Medicati on ID: 415706 D uration Value: 30 Prescri bed By [...] auto-inje ctor 03/02 completed Medicati on ID: 576460 D uration Value: 30 Brand Name: epinephr ine Send Method: E-Prescr ibed Sub s Allowed: subs OK Speci al Instruct ion: INJECT 1 PEN INTRAMUS CULARLY A SINGLE DOSE IF NEEDED M edicatio nGeneric Name: epinephr ine Not Available Not Available Not Available Nasonex 50 mcg/actua tion [place] 2 spray into both nostrils 10/21 completed Medicati on ID: 83671 Du ration Value: 30 Prescri bed By Name: Julito Martinez rd, Waylon Gutiérrez nd Name: Nasonex Send Method: E-Prescr ibed Sub s Allowed: subs OK Medic ationGen ericName : Nasonex Not Available Not Available Not Available Percocet 5 mg-325 mg tablet 1 tablet by mouth 12/28 completed Medicati on ID: 58127 Pr escribed By Name: Eliseo Veras MD Brand Name: Percocet Send Method: E-Prescr ibed Sub s Allowed: subs OK Medic ationGen ericName : Percocet Not Available Not Available Not Available ParaGard T 380A 380 square mm intrauter ine device 03/02 completed Medicati on ID: [id number] D uration Value: 1 Brand Name: ParaGard [...] mg capsule 12/28 completed Medicati on ID: 61129 Re ason: () Brand Name: Benadryl Send [...] 4 drop 2018 active Medicati on ID: 807133 D uration Value: 7 Prescri bed By Name: lEiseo Veras MD Brand Name: Ciprodex Send Method: E-Prescr ibed Sub s Allowed: subs OK Medic ationGen ericName : Ciprodex Not Available Not Available Not Available nitrofura ntoin monohydra te/macroc rystals 100 mg capsule 12/28 completed Medicati on ID: 62537 Du ration Value: 7 Reason: () Brand Name: nitrofur antoin monohyd/ m-cryst Send Method: E-Prescr ibed Sub s Allowed: subs OK Speci al Instruct ion: take 1 capsule by mouth every 12 hours for 7 days Med icationG enericNa me: nitrofur antoin monohyd/ m-cryst Not Available Not Available Not Available FreeStyle Lite Strips 02/18 completed Medicati on ID: 364114 D uration Value: 25 Reason: () Brand [...] e 205.5 mcg (0.15 %) nasal spray [place] 2 spray into both nostrils twice a day 2022 active Medicati on ID: 212733 D uration Value: 30 Brand Name: azelasti ne Send Method: E-Prescr ibed Sub s Allowed: subs OK Speci al Instruct ion: Use twice daily, 2 sprays each side of nose. Me dication GenericN shasta: azelasti ne Not Available Not Available Not Available Probiotic and Acidophil us 300 million cell-250 mg capsule 10/21 completed Medicati on ID: [address] [place] son: () Brand Name: Probioti c & Acidophi yanelis Send Method: E-Prescr ibed Sub s Allowed: subs OK Medic ationGen ericName : Probioti c & Acidophi yanelis Not Available Not Available Not Available [employer] MANAGER-HE[employer] One 02/18 completed Medicati on ID: 907695 D uration Value: 30 Reason: () Brand Name: REGIONAL MAINTENANCE MANAGER-HEME One Send Method: E-Prescr ibed Sub s Allowed: subs OK Speci al Instruct ion: take 1 capsule by mouth once daily Me dication GenericN shasta: REGIONAL MAINTENANCE MANAGER-HEME One Not Available Not Available Not Available Nasacort 55 mcg nasal spray aerosol [place] 2 spray into both nostrils once a day 2022 active Medicati on ID: 195302 D uration Value: 30 Brand Name: Nasacort Send Method: E-Prescr ibed Sub s Allowed: subs OK Medic ationGen ericName : Nasacort Not Available Not Available Not Available Flonase Allergy Relief 50 mcg/actua tion nasal spray,juan pension 2 puff into both nostrils 2018 active Medicati on ID: 532302 D uration Value: 30 Prescri bed By [...] Updated DateTime 06/06/2024 152.4 cm 25 kg/m2 81463.82 g Angie Min [place] [facility] 06/06/2024 15:20:28 Social History None recorded. Functional Status None recorded. Mental Status None recorded. Family History Nothing Reported. Medical History No medical history recorded. Gynecological HistoryNo gynecological history recorded. Obstetrics History GPAL:G 0 P 0 0 0 0 Past Encounters Encounter ID Performer Location Encounter Start Date Encounter Closed Date Diagnosis/Indication Diagnosis SNOMED-CT Code Diagnosis ICD10 Code Diagnosis Note [id number] CHLOE CONTRERAS MD [facility] [address] [address] 06/06/2024 15:10:14 06/06/2024 15:43:31 Allergic rhinitis 54453245 J30.89 Hypertroph y of nasal turbinates 04538116 J34.3 Health Concerns Section Related Observation LastModified by Organization Detai ls LastModified Time None Recorded Concern Status LastModified by Organization Details LastModified Time None Recorded Advance Directives Directive None Recorded Payers Encounter Date Sequence Insurance Name Policy Number Policy [place] Covered Member ID [place] Member ID Guarantor Name 06/06/2024 1 [facility] PLAN (MEDICAID HMO) eBnita Castaneda [id number] Benita Castaneda Notes Date Note Type Note [...] of mood disturbancezyrtec - no helpimmunotherapy SCIT [id number] - stopped during pregnancies, no change after 2 yrs of shot01/08/24 CT sinus xoran turbinate hypertrophy. Other notable findings included hypoplastic frontals, relatively hypoplastic maxillary sinuses with mild mucosal thickening and otherwise aerated paranasal sinuses. 07/31/[address] Veras/18/09 BMT, T&A in [place] current nasal regimen of flonase seems to help slight CHLOE CONTRERAS MD [address] [place] [address], [place], [address], [place] - [facility] 06/06/2024 15:41:09 OBGyn Episode No OBEpisode recorded.
[2024-12-17 11:03] LABS: Calcium 8.4 mg/dL (8.4-10.2); Cholesterol 155 mg/dL (<200); Glucose Fasting 100 mg/dL (60-99); HDL Cholesterol 32 mg/dL (>40); LDL Cholesterol Calculated 93 mg/dL (<100); Triglycerides 151 mg/dL (<150)
== END 2024-12-17 08:02 | disposition home or self-care (01) ==
LOC: HO.HMGCLDS 08:01
PROVIDERS: PCP Nurse Practitioner Family; Visit Provider Nurse Practitioner Family
DX: E83.51 Hypocalcemia (principal); R73.01 Impaired fasting glucose
CPT/HCPCS: 36415; 80061; 82306; 82310; 82947

== ENCOUNTER 2024-12-20 16:06 | Outpatient (AMB) | payer OTHER, SELFPAY ==
--- NOTE | 2024-12-20 16:04 | A.OFFPC_ITS ---
Intake Visit [facility] Allergies No Known Allergies [No Known Allergies*] Allergy (Verified 12/20/24 16:04) Tobacco use date assessed: 04/12/24 Dental Screening Dental Screen Date: 09/23/24 HPI HPI Comments History of Present Illness Details 34-year-old [facility]. She admits to making healthy dietary choices and exercising routinely. She offers no complaints and denies acute symptoms at this time. 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 Mark Quintanilla, Isabel Hood, Hoang Jerome and colleagues, with an educational gi from [employer]. Review of Systems Const Details: Denies chills, Denies fatigue, Denies fever(s), Denies headache(s) and Denies weakness Cardiac Denies chest pain, Denies claudication, Denies leg edema, Denies lightheadedness, Denies palpitations, Denies dyspnea, Denies dyspnea on exertion, Denies orthopnea and Denies other (Loss of consciousness) Resp Denies cough, Denies excessive phlegm production, Denies dyspnea, Denies dyspnea on exertion, Denies snoring and Denies wheezing Physical exam (Primary Care) Tobacco/Smoking Status: Tobacco use Status Tobacco use date assessed 04/12/24 12/20/24 16:05 Patient Tobacco Use Status Never used Tobacco 12/20/24 16:05 e-Cigarette/Vaping Use Never Used 12/20/24 16:05 Thrive Assessment: Date of Thrive Assessment Date Thrive assessed 09/23/24 12/20/24 16:05 Const Other: Telehealth visit. No physical exam. Telehealth Telehealth Telehealth Platform: Telephone Location of provider rendering services: practice address Location of patient: address on file Patient Identification confirmed using: Name, : Yes Telehealth method: voice only Patient verbally consented to treatment: Yes Patient verbally consented to billing insurance company: Yes Patient informed of any privacy concerns related to visit: Yes Coding Level of Care Code Tele New Pt Level 3 (37963) Diagnoses Dyslipidemia E78.5 Hypocalcemia E83.51 Elevated fasting blood sugar R73.01 Vitamin D deficiency E55.9 Time Spent (min) 15 Assessment & Plan Assessment & Plan (1) Dyslipidemia: Code(s): E78.5 - Hyperlipidemia, unspecified Category: Medical Plan: Recent triglyceride level is slightly elevated, 151, previous level was 181, total cholesterol and LDL levels are normal, HDL level is slightly low, 32. Encouraged to continue to limit foods high in saturated fat and avoid foods high in trans fat. Routine exercise encouraged. Fast for 10-12 hours, may drink water, and get lipid panel blood work done 2-3 days before next visit. Follow-up for telehealth visit in 2 months. Return sooner with symptoms or concerns. Verbalized understanding and agreed with treatment plan. (2) Hypocalcemia: Code(s): E83.51 - Hypocalcemia Category: Medical Plan: Recent calcium level is normal. (3) Elevated fasting blood sugar: Code(s): R73.01 - Impaired fasting glucose Category: Medical Plan: Recent fasting glucose is 100, previous level was 109. Routine exercise and healthy diet, including low carbs encouraged. Will check A1c and make changes as needed. Will check A1c and make changes as needed. Verbalized understanding and agreed with the treatment plan. (4) Vitamin D deficiency: Code(s): E55.9 - Vitamin D deficiency, unspecified Category: Medical Plan: Recent vitamin-D level is slightly low, 26. Vitamin D3 1000 units daily ordered; advised to take as prescribed. Will check vitamin D3 levels in 8 weeks. Verbalized understanding and agreed with treatment plan. Orders: Orders Vitamin D 25-OH Total 8 Weeks E55.9 - Vitamin D deficiency, unspecified Lipid Panel 8 Weeks E78.5 - Hyperlipidemia, unspecified Hemoglobin A1c Today R73.01 - Impaired fasting glucose Medications: New cholecalciferol (vitamin D3) (Vitamin D3) 25 mcg PO DAILY 90 days 90 tabs 1RF
--- OUTSIDE RECORDS SUMMARY | 2024-12-20 16:07 | XMS_ITS | Data Portability ---
Author Organization [place] - [facility], Allergy Address [address] [place] [phone] Care Team Providers Care Customs Consultant Name Role Phone CHIARA MICHELLE Primary Care Provider [phone] Assessment Encounter Date Assessment Date Assessment LastModified [...] submucous resection inferior turbinate (SURG) 2023 024 [email or web address] [id number] Not available 08/01/202 4 16:16:39 Imaging [...] Acute serous otitis media of right ear [id number] 20010 Active 2017 Acute serous otitis media, right ear; Note: Date Diagnosed : 05/21/2018 11:01 AM (H65.01) Not Available [facility] 4 03:03:43 Hypertrop hy of nasal turbinate s 92980543 Active 2014 inf turb reduction 07/2015 Dr Rito CONTRERAS MD [address] [place] [address],[place] [address], [place], [phone] , [facility] - [facility] 4 12:31:28 Follow-up visit Active 2014 Encounter for follow-up examinati on after completed treatment for condition s other than malignant neoplasm; Note: Date Diagnosed : 09/14/2015 11:40 AM (Z09) Not Available [facility] 4 03:03:42 Acute maxillary sinusitis 34082083 Active 2015 Acute maxillary sinusitis , unspecifi ed; Note: Date Diagnosed : 6 12:34 PM (J01.00) Not Available [facility] 4 03:03:43 Allergic rhinitis 37932397 Active 2018 CHLOE CONTRERAS MD [address] [facility],[place] [address], [place], [phone] , [facility] - [facility] 4 12:31:04 Disorder of left Eustachia n tube [id number] 96457 Active 2015 Other specified disorders of Eustachia n tube, left ear; Note: Date Diagnosed : 6 11:56 AM (H69.82) Not Available [facility] 4 03:03:41 Acute suppurati ve otitis media without spontaneo us rupture of ear drum 59691595 Active 2017 Acute suppurati ve otitis media without spontaneo us rupture of ear drum, left ear; Note: Date Diagnosed : 05/21/2018 11:01 AM (H66.002) Not Available [facility] 4 03:03:44 Nasal congestio n 44463046 Active 2017 Nasal congestio n; Note: Date Diagnosed : 8 12:20 PM (R09.81) Not Available [facility] 4 03:03:44 Diffuse otitis externa 53855260 Active 2018 Diffuse otitis externa, right ear; Note: Date Diagnosed : 03/07/2019 11:33 AM (H60.311) Not Available [facility] 4 03:03:41 Otalgia of right ear 2429679330 Active 2018 Otalgia, right ear; Note: Date Diagnosed : 03/07/2019 11:34 AM (H92.01) Not Available [facility] 4 03:03:42 Deviated nasal septum 433445150 Active 2014 Septal deviation / Deflectio n; Condition : uncontrol led Note: Date Diagnosed : 4 9:36 AM (470) ; Start Date : 4 Deviate d nasal septum; Note: Date Diagnosed : 07/21/2015 11:00 AM (J34.2) [mapped from ICD9 code: 470] Not Available [facility] 4 03:03:43 Chronic rhinitis 07702654 Active 2015 Chronic rhinitis; Note: Date Diagnosed : 12/28/2015 10:14 AM (J31.0) Not Available [facility] 4 03:03:43 Problem Notes None recorded. Procedures Surgical History Date Name Laterality Status Provider Name and Address Organization Details Recorded Time 5 Resect inferior turbinate completed CHLOE CONTRERAS MD [address] [place] [address], [phone], [facility] - [facility] 05/13/2024 12:25:19 Imaging Results Imaging Date Name Status LastModified by [facility] Details LastModified Time 01/08/2024 imaging/diag nostic result completed [email or web address] Information not available 06/26/2024 03:47:57 Procedure Notes None recorded. Medical Equipment None Reported. Medications Name Sig Start Date Stop Date Status Note LastModified by Organization Details LastModified Time Singulair 10 mg tablet Take 1 tablet by mouth 2023 active Medicati on ID: [id number] B rand Name: Magy r Send Method: [...] by mouth 2015 active Medicati on ID: [id number] D uration Value: 10 Prescri bed By Name: RODDY Bhagat nd Name: amoxicil kemi Send Method: E-Prescr ibed Sub s Allowed: subs OK Medic ationGen ericName : amoxicil kemi Not Available Not Available Not Available metformin 500 mg tablet 02/18 completed Medicati on ID: [id number] D uration Value: 30 Reason: () Brand [...] by mouth 2017 active Medicati on ID: [id number] D uration Value: 14 Prescri bed By Name: RODDY Melgoza nd Name: clarithr omycin S end Method: E-Prescr ibed Sub s Allowed: subs OK Medic ationGen ericName : clarithr omycin Not Available Not Available Not Available FreeStyle Lancets 28 gauge 02/18 completed Medicati on ID: [id number] D uration Value: 25 Reason: () Brand [...] by mouth 2023 active Medicati on ID: [id number] B rand Name: predniso ne Send Method: E-Prescr ibed Sub s Allowed: subs OK Speci al Instruct ion: Take 3 tabs daily for 3 days then 2 tabs daily for 3 days then 1 tabs daily for 3 days then stop Med icationG enericNa me: predniso ne Not Available Not Available Not Available metronida zole 500 mg tablet 12/28 completed Medicati on ID: [id number] Du ration Value: 5 Reason: () Brand [...] mg capsule 02/18 completed Medicati on ID: 355803 D uration Value: 30 Reason: () Brand Name: progeste nohemi microniz ed Send Method: E-Prescr ibed Sub s Allowed: subs OK Speci al Instruct ion: insert 1 capsule vaginall y at bedtime Medicati onGeneri cName: progeste nohemi stafford ed Not Available Not Available Not Available Zaditor 0.025 % (0.035 %) eye drops 2016 active Medicati on ID: 743547 D uration Value: 30 Prescri bed By [...] auto-inje ctor 03/02 completed Medicati on ID: [id number] D uration Value: 30 Brand Name: epinephr ine Send Method: E-Prescr ibed Sub s Allowed: subs OK Speci al Instruct ion: INJECT 1 PEN INTRAMUS CULARLY A SINGLE DOSE IF NEEDED M edicatio nGeneric Name: epinephr ine Not Available Not Available Not Available Nasonex 50 mcg/actua tion [place] 2 spray into both nostrils 10/21 completed Medicati on ID: [id number] Du ration Value: 30 Prescri bed By Name: Julito Martinez rd, Waylon Gutiérrez nd Name: Nasonex Send Method: E-Prescr ibed Sub s Allowed: subs OK Medic ationGen ericName : Nasonex Not Available Not Available Not Available Percocet 5 mg-325 mg tablet 1 tablet by mouth 12/28 completed Medicati on ID: [id number] Pr escribed By Name: Eliseo Vears MD Brand Name: Percocet Send Method: E-Prescr ibed Sub s Allowed: subs OK Medic ationGen ericName : Percocet Not Available Not Available Not Available ParaGard T 380A 380 square mm intrauter ine device 03/02 completed Medicati on ID: [id number] D uration Value: 1 Brand Name: ParaGard [...] mg capsule 12/28 completed Medicati on ID: [id number] Re ason: () Brand Name: Benadryl Send [...] 4 drop 2018 active Medicati on ID: 668837 D uration Value: 7 Prescri bed By Name: Eliseo Veras MD Brand Name: Ciprodex Send Method: E-Prescr ibed Sub s Allowed: subs OK Medic ationGen ericName : Ciprodex Not Available Not Available Not Available nitrofura ntoin monohydra te/macroc rystals 100 mg capsule 12/28 completed Medicati on ID: 23245 Du ration Value: 7 Reason: () Brand Name: nitrofur antoin monohyd/ m-cryst Send Method: E-Prescr ibed Sub s Allowed: subs OK Speci al Instruct ion: take 1 capsule by mouth every 12 hours for 7 days Med icationG enericNa me: nitrofur antoin monohyd/ m-cryst Not Available Not Available Not Available FreeStyle Lite Strips 02/18 completed Medicati on ID: 814433 D uration Value: 25 Reason: () Brand [...] e 205.5 mcg (0.15 %) nasal spray [place] 2 spray into both nostrils twice a day 2022 active Medicati on ID: [id number] D uration Value: 30 Brand Name: azelasti ne Send Method: E-Prescr ibed Sub s Allowed: subs OK Speci al Instruct ion: Use twice daily, 2 sprays each side of nose. Me dication GenericN shasta: azelasti ne Not Available Not Available Not Available Probiotic and Acidophil us 300 million cell-250 mg capsule 10/21 completed Medicati on ID: 1086 [place] son: () Brand Name: Probioti c & Acidophi yanelis Send Method: E-Prescr ibed Sub s Allowed: subs OK Medic ationGen ericName : Probioti c & Acidophi yanelis Not Available Not Available Not Available DIALYSIS RN-HEME One 02/18 completed Medicati on ID: [id number] D uration Value: 30 Reason: () Brand Name: DIALYSIS RN-HEME One Send Method: E-Prescr ibed Sub s Allowed: subs OK Speci al Instruct ion: take 1 capsule by mouth once daily Me dication GenericN shasta: DIALYSIS RN-HEME One Not Available Not Available Not Available Nasacort 55 mcg nasal spray aerosol [place] 2 spray into both nostrils once a day 2022 active Medicati on ID: 460205 D uration Value: 30 Brand Name: Nasacort Send Method: E-Prescr ibed Sub s Allowed: subs OK Medic ationGen ericName : Nasacort Not Available Not Available Not Available Flonase Allergy Relief 50 mcg/actua tion nasal spray,juan pension 2 puff into both nostrils 2018 active Medicati on ID: 608356 D uration Value: 30 Prescri bed By [...] Updated DateTime 06/06/2024 152.4 cm 25 kg/m2 44832.82 g Angie Min [place] - [facility] 06/06/2024 15:20:28 Social History None recorded. Functional [...] Diagnosis Note [id number] CHLOE CONTRERAS MD [facility] [address] [phone] 06/06/2024 15:10:14 06/06/2024 15:43:31 Allergic rhinitis 85054224 J30.89 Hypertroph y of nasal turbinates 22347996 J34.3 Health Concerns Section Related Observation LastModified by Organization Detai ls LastModified Time None Recorded Concern Status LastModified by Organization Details LastModified Time None Recorded Advance Directives Directive None Recorded Payers Encounter Date Sequence Insurance Name Policy Number Policy [place] Covered Member ID [place] Member ID Guarantor Name 06/06/2024 1 [facility] - HEALTH NET PLAN (MEDICAID HMO) Benita Castaneda [id number] Benita Castaneda Notes Date Note Type Note [...] of mood disturbancezyrtec - no helpimmunotherapy SCIT [id number] - stopped during pregnancies, no change after 2 yrs of shot01/08/24 CT sinus xoran turbinate hypertrophy. Other notable findings included hypoplastic frontals, relatively hypoplastic maxillary sinuses with mild mucosal thickening and otherwise aerated paranasal sinuses. 07/31/[address] Veras/18/09 BMT, T&A in [place] current nasal regimen of flonase seems to help slight CHLOE CONTRERAS MD [address] [place] [address], [place], [address], [place] - [facility] 06/06/2024 15:41:09 OBGyn Episode No OBEpisode recorded.
== END 2024-12-20 16:32 | disposition home or self-care (01) ==
LOC: HO.HMCFM 16:06
PROVIDERS: PCP Nurse Practitioner Family; Visit Provider Nurse Practitioner Family
DX: E78.5 Hyperlipidemia, unspecified (principal); E83.51 Hypocalcemia; R73.01 Impaired fasting glucose

== ENCOUNTER 2025-03-05 08:09 | Outpatient (REF) | payer OTHER, SELFPAY ==
--- OUTSIDE RECORDS SUMMARY | 2025-03-05 08:20 | XMS_ITS | Data Portability ---
Author Organization [place] - [facility], Allergy Address [address] [place] [phone] Care Team Providers Care Livestock Farmers Name Role Phone CHIARA MICHELLE Primary Care Provider [phone] Assessment Encounter Date Assessment Date Assessment LastModified [...] submucous resection inferior turbinate (SURG) 2023 024 [email or web address] [id number] Not available 08/01/202 4 16:16:39 Imaging [...] Acute serous otitis media of right ear [id number] 69992 Active 2017 Acute serous otitis media, right ear; Note: Date Diagnosed : 05/21/2018 11:01 AM (H65.01) Not Available [facility] 4 03:03:43 Hypertrop hy of nasal turbinate s 72906907 Active 2014 inf turb reduction 07/2015 Dr Rito CONTRERAS MD [address] [place] [address],[place] [address], [place], [phone] , [facility] - [facility] 4 12:31:28 Follow-up visit Active 2014 Encounter for follow-up examinati on after completed treatment for condition s other than malignant neoplasm; Note: Date Diagnosed : 09/14/2015 11:40 AM (Z09) Not Available [facility] 4 03:03:42 Acute maxillary sinusitis 50525157 Active 2015 Acute maxillary sinusitis , unspecifi ed; Note: Date Diagnosed : 6 12:34 PM (J01.00) Not Available [facility] 4 03:03:43 Allergic rhinitis 76922354 Active 2018 CHLOE CONTRERAS MD [address] [facility],[place] [address], [place], [phone] , [facility] - [facility] 4 12:31:04 Disorder of left Eustachia n tube 29273829582 77643 Active 2015 Other specified disorders of Eustachia n tube, left ear; Note: Date Diagnosed : 6 11:56 AM (H69.82) Not Available [facility] 4 03:03:41 Acute suppurati ve otitis media without spontaneo us rupture of ear drum 54011661 Active 2017 Acute suppurati ve otitis media without spontaneo us rupture of ear drum, left ear; Note: Date Diagnosed : 05/21/2018 11:01 AM (H66.002) Not Available [facility] 4 03:03:44 Nasal congestio n 62247303 Active 2017 Nasal congestio n; Note: Date Diagnosed : 8 12:20 PM (R09.81) Not Available [facility] 4 03:03:44 Diffuse otitis externa 10312752 Active 2018 Diffuse otitis externa, right ear; Note: Date Diagnosed : 03/07/2019 11:33 AM (H60.311) Not Available [facility] 4 03:03:41 Otalgia of right ear 9272632677 Active 2018 Otalgia, right ear; Note: Date Diagnosed : 03/07/2019 11:34 AM (H92.01) Not Available [facility] 4 03:03:42 Deviated nasal septum 815283504 Active 2014 Septal deviation / Deflectio n; Condition : uncontrol led Note: Date Diagnosed : 4 9:36 AM (470) ; Start Date : 4 Deviate d nasal septum; Note: Date Diagnosed : 07/21/2015 11:00 AM (J34.2) [mapped from ICD9 code: 470] Not Available [facility] 4 03:03:43 Chronic rhinitis 73627961 Active 2015 Chronic rhinitis; Note: Date Diagnosed : 12/28/2015 10:14 AM (J31.0) Not Available [facility] 4 03:03:43 Problem Notes None recorded. Procedures Surgical History Date Name Laterality Status Provider Name and Address Organization Details Recorded Time 5 Resect inferior turbinate completed CHLOE CONTRERAS MD [address] [place] [address], [phone], [facility] - [facility] 05/13/2024 12:25:19 Imaging Results Imaging Date Name Status LastModified by [facility] Details LastModified Time 01/08/2024 imaging/diag nostic result completed [email or web address] Information not available 06/26/2024 03:47:57 Procedure Notes None recorded. Medical Equipment None Reported. Medications Name Sig Start Date Stop Date Status Note LastModified by Organization Details LastModified Time Singulair 10 mg tablet Take 1 tablet by mouth 2023 active Medicati on ID: 555127 B rand Name: Magy r Send Method: [...] by mouth 2015 active Medicati on ID: 722765 D uration Value: 10 Prescri bed By Name: RODDY Bhagat nd Name: amoxicil kemi Send Method: E-Prescr ibed Sub s Allowed: subs OK Medic ationGen ericName : amoxicil kemi Not Available Not Available Not Available metformin 500 mg tablet 02/18 completed Medicati on ID: [id number] D uration Value: 30 Reason: () Brand [...] by mouth 2017 active Medicati on ID: 879150 D uration Value: 14 Prescri bed By Name: RODDY Melgoza nd Name: clarithr omycin S end Method: E-Prescr ibed Sub s Allowed: subs OK Medic ationGen ericName : clarithr omycin Not Available Not Available Not Available FreeStyle Lancets 28 gauge 02/18 completed Medicati on ID: 635963 D uration Value: 25 Reason: () Brand [...] by mouth 2023 active Medicati on ID: [id number] B rand Name: predniso ne Send Method: E-Prescr ibed Sub s Allowed: subs OK Speci al Instruct ion: Take 3 tabs daily for 3 days then 2 tabs daily for 3 days then 1 tabs daily for 3 days then stop Med icationG enericNa me: predniso ne Not Available Not Available Not Available metronida zole 500 mg tablet 12/28 completed Medicati on ID: 51117 Du ration Value: 5 Reason: () Brand [...] mg capsule 02/18 completed Medicati on ID: [id number] D uration Value: 30 Reason: () Brand Name: progeste nohemi microniz ed Send Method: E-Prescr ibed Sub s Allowed: subs OK Speci al Instruct ion: insert 1 capsule vaginall y at bedtime Medicati onGeneri cName: progeste nohemi stafford ed Not Available Not Available Not Available Zaditor 0.025 % (0.035 %) eye drops 2016 active Medicati on ID: 282865 D uration Value: 30 Prescri bed By [...] auto-inje ctor 03/02 completed Medicati on ID: [id number] D uration Value: 30 Brand Name: epinephr ine Send Method: E-Prescr ibed Sub s Allowed: subs OK Speci al Instruct ion: INJECT 1 PEN INTRAMUS CULARLY A SINGLE DOSE IF NEEDED M edicatio nGeneric Name: epinephr ine Not Available Not Available Not Available Nasonex 50 mcg/actua tion [place] 2 spray into both nostrils 10/21 completed Medicati on ID: 07095 Du ration Value: 30 Prescri bed By Name: Julito Martinez rd, Waylon Gutiérrez nd Name: Nasonex Send Method: E-Prescr ibed Sub s Allowed: subs OK Medic ationGen ericName : Nasonex Not Available Not Available Not Available Percocet 5 mg-325 mg tablet 1 tablet by mouth 12/28 completed Medicati on ID: [id number] Pr escribed By Name: Eliseo Veras MD Brand Name: Percocet Send Method: E-Prescr ibed Sub s Allowed: subs OK Medic ationGen ericName : Percocet Not Available Not Available Not Available ParaGard T 380A 380 square mm intrauter ine device 03/02 completed Medicati on ID: 322112 D uration Value: 1 Brand Name: ParaGard [...] mg capsule 12/28 completed Medicati on ID: 28967 Re ason: () Brand Name: Benadryl Send [...] 4 drop 2018 active Medicati on ID: 453542 D uration Value: 7 Prescri bed By Name: Eliseo Veras MD Brand Name: Ciprodex Send Method: E-Prescr ibed Sub s Allowed: subs OK Medic ationGen ericName : Ciprodex Not Available Not Available Not Available nitrofura ntoin monohydra te/macroc rystals 100 mg capsule 12/28 completed Medicati on ID: 25404 Du ration Value: 7 Reason: () Brand Name: nitrofur antoin monohyd/ m-cryst Send Method: E-Prescr ibed Sub s Allowed: subs OK Speci al Instruct ion: take 1 capsule by mouth every 12 hours for 7 days Med icationG enericNa me: nitrofur antoin monohyd/ m-cryst Not Available Not Available Not Available FreeStyle Lite Strips 02/18 completed Medicati on ID: 584430 D uration Value: 25 Reason: () Brand [...] e 205.5 mcg (0.15 %) nasal spray [place] 2 spray into both nostrils twice a day 2022 active Medicati on ID: [id number] D uration Value: 30 Brand Name: azelasti ne Send Method: E-Prescr ibed Sub s Allowed: subs OK Speci al Instruct ion: Use twice daily, 2 sprays each side of nose. Me dication GenericN shasta: azelasti ne Not Available Not Available Not Available Probiotic and Acidophil us 300 million cell-250 mg capsule 10/21 completed Medicati on ID: 1086 [place] son: () Brand Name: Probioti c & Acidophi yanelis Send Method: E-Prescr ibed Sub s Allowed: subs OK Medic ationGen ericName : Probioti c & Acidophi yanelis Not Available Not Available Not Available ELECTRO MECHANICAL ENGINEER-HEME One 02/18 completed Medicati on ID: 932280 D uration Value: 30 Reason: () Brand Name: ELECTRO MECHANICAL ENGINEER-HEME One Send Method: E-Prescr ibed Sub s Allowed: subs OK Speci al Instruct ion: take 1 capsule by mouth once daily Me dication GenericN shasta: ELECTRO MECHANICAL ENGINEER-HEME One Not Available Not Available Not Available Nasacort 55 mcg nasal spray aerosol [place] 2 spray into both nostrils once a day 2022 active Medicati on ID: 894262 D uration Value: 30 Brand Name: Nasacort Send Method: E-Prescr ibed Sub s Allowed: subs OK Medic ationGen ericName : Nasacort Not Available Not Available Not Available Flonase Allergy Relief 50 mcg/actua tion nasal spray,juan pension 2 puff into both nostrils 2018 active Medicati on ID: 814529 D uration Value: 30 Prescri bed By [...] Updated DateTime 06/06/2024 152.4 cm 25 kg/m2 83355.82 g Angie Min [place] - [facility] 06/06/2024 15:20:28 Social History None recorded. Functional [...] Note [id number] CHLOE CONTRERAS MD [facility] [address] [address] 06/06/2024 15:10:14 06/06/2024 15:43:31 Allergic rhinitis 01052806 J30.89 Hypertroph y of nasal turbinates 77792483 J34.3 Health Concerns Section Related Observation LastModified by Organization Detai ls LastModified Time None Recorded Concern Status LastModified by Organization Details LastModified Time None Recorded Advance Directives Directive None Recorded Payers Encounter Date Sequence Insurance Name Policy Number Policy [place] Covered Member ID [place] Member ID Guarantor Name 06/06/2024 1 [facility] - HEALTH NET PLAN (MEDICAID HMO) Benita Castaneda [id number] Benita Castaneda Notes Date Note Type Note [...] of mood disturbancezyrtec - no helpimmunotherapy SCIT [id number] - stopped during pregnancies, no change after 2 yrs of shot01/08/24 CT sinus xoran turbinate hypertrophy. Other notable findings included hypoplastic frontals, relatively hypoplastic maxillary sinuses with mild mucosal thickening and otherwise aerated paranasal sinuses. 07/31/[address] Veras/18/09 BMT, T&A in [place] current nasal regimen of flonase seems to help slight CHLOE CONTRERAS MD [address] [place] [address], [place], [address], [place] - [facility] 06/06/2024 15:41:09 OBGyn Episode No OBEpisode recorded.
[2025-03-05 10:47] LABS: Estimated Average Glucose 120 mg/dL; Hemoglobin A1C 126.5234 umol/L; Hemoglobin A1c % 5.8 % (<6.0); Total Hemoglobin (HGBA1C) 3205.3094 umol/L
[2025-03-05 10:53] LABS: Cholesterol 193 mg/dL (<200); HDL Cholesterol 40 mg/dL (>40); LDL Cholesterol Calculated 117 mg/dL (<100); Triglycerides 181 mg/dL (<150)
[2025-03-05 10:56] LABS: Vitamin D 25-OH Total 18.2 ng/mL (>30)
== END 2025-03-05 08:10 | disposition home or self-care (01) ==
LOC: HO.HMGCLDS 08:09
PROVIDERS: PCP Nurse Practitioner Family; Visit Provider Nurse Practitioner Family
DX: E78.5 Hyperlipidemia, unspecified (principal); R73.01 Impaired fasting glucose; E55.9 Vitamin D deficiency, unspecified
CPT/HCPCS: 36415; 80061; 82306; 83036

== ENCOUNTER 2025-03-07 12:03 | Outpatient (AMB) | payer OTHER, SELFPAY ==
--- NOTE | 2025-03-07 12:00 | A.OFFPC_ITS ---
Intake Visit Reasons: Telehealth f/u 8 wks labs review Intake Note: [facility] Medical Instructor Required: No Is last menstrual period known: Yes Last menstrual period: 02/11/25 Post menopausal: No Patient : No Allergies No Known Allergies [No Known Allergies*] Allergy (Verified 03/07/25 12:00) Tobacco use date assessed: 03/07/25 Dental Screening Dental Screen Date: 03/07/25 Did you have a dental visit in the last 12 months?: Yes Did you have a dental problem in the last 6 months where you did not have access to dental care?: No Was dental information given to patient?: Patient has dentist HPI HPI Comments History of Present Illness Details 34-year-old female presents [facility] for review of recent lab results. She notes that she has been eating poorly the past 1 month. She exercises but not regularly. She has been inconsistent with taking her vitamin D3. She offers no complaints and denies acute symptoms at this time. 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 Current occupational exposures/hazards: No Cognitive needs: No Hearing needs: No Vision needs: Yes Female Reproductive History Menstrual Date of last menstrual period: 02/11/25 Questionnaire Thrive Questionnaire Date Thrive assessed: 09/23/24 I am a: Patient What is your living situation today?: I have a steady place to live Within the past 12 months, did the food you bought not last and you didn't have the money to get more?: Never true Within the past 12 months, did you worry whether your food would run out before you got money to buy more?: Never true Do you have trouble paying for medicines?: No Do you have trouble getting transportation to medical appointments?: No Do you have trouble paying your heating and electricity bill?: No Do you have trouble taking care of your child, family member or friend?: No Do you have trouble with day-to-day activities such as bathing, preparing meals, shopping, managing finances, etc.?: No Are you currently unemployed and looking for a job?: No Are you interested in more education?: No Please select the resources that you would like help with: None Currently or been in a relationship where the following occur: No concerns reported THRIVE Score: 0 AUDIT C Alcohol Use Questionnaire (AUDIT-C) 3. How often do you have six or more drinks on one occasion?: Never Total Score: 0 YANNICK-7 AMB Questionnaire YANNICK-7 Date YANNICK - 7 assessed: 09/23/24 Source: Developed by Drs. Mark Quintanilla, Isabel Hood, Hoang Jerome and colleagues, with an educational gi from [employer]. Review of Systems Const Details: Denies chills, Denies fatigue, Denies fever(s), Denies headache(s) and Denies weakness Cardiac Denies chest pain, Denies claudication, Denies leg edema, Denies lightheadedness, Denies palpitations, Denies dyspnea, Denies dyspnea on exertion, Denies orthopnea and Denies other (Loss of consciousness) Resp Denies cough, Denies excessive phlegm production, Denies dyspnea, Denies dyspnea on exertion, Denies snoring and Denies wheezing Physical exam (Primary Care) Tobacco/Smoking Status: Tobacco use Status Tobacco use date assessed 03/07/25 03/07/25 12:02 Patient Tobacco Use Status Never used Tobacco 03/07/25 12:02 e-Cigarette/Vaping Use Never Used 03/07/25 12:02 Thrive Assessment: Date of Thrive Assessment Date Thrive assessed 09/23/24 03/07/25 12:02 Currently or been in a relationship where the following occur: No concerns reported Const Other: Patient is alert and oriented x3 Telehealth Telehealth Telehealth Platform: Telephone Location of provider rendering services: practice address Location of patient: address on file Patient Identification confirmed using: Name, : Yes Telehealth method: voice only Patient verbally consented to treatment: Yes Patient verbally consented to billing insurance company: Yes Patient informed of any privacy concerns related to visit: Yes Coding Level of Care Code Tele Est Pt Level 3 (96602) Diagnoses Dyslipidemia E78.5 Prediabetes R73.03 Vitamin D deficiency E55.9 Time Spent (min) 15 Assessment & Plan Assessment & Plan (1) Dyslipidemia: Code(s): E78.5 - Hyperlipidemia, unspecified Category: Medical Plan: Recent triglycerides are elevated, 181 from 151, LDL level is elevated, 117 from 93, HDL level slightly low, 40 from 32, total cholesterol is normal. She notes that she has been eating poorly the past 1 month. She exercises but not regularly. Advised to limit foods high in saturated fat and avoid foods high in trans fat. Routine exercise encouraged. Fast for 10-12 hours, may drink water, perform lipid panel blood work 2-3 days before next visit. Follow-up for telehealth visit in 2 months. Return sooner with symptoms or concerns. Verbalized understanding and agreed with treatment plan. (2) Prediabetes: Code(s): R73.03 - Prediabetes Category: Medical Plan: Recent A1c is 5.8. Routine exercise and diet, including low carbs encouraged. Will monitor A1c periodically or if present with biliary symptoms or concerns. Verbalized understanding and agreed with the plan. (3) Vitamin D deficiency: Code(s): E55.9 - Vitamin D deficiency, unspecified Category: Medical Plan: Recent vitamin-D level is low, 18.2; previous level was 26.0. She has been inconsistent with taking a vitamin D3. Encouraged to take vitamin D3 25 mcg daily. Inform that his sun is a good source of vitamin D3. Will recheck vitamin-D level in 2 months. Verbalized understanding and agreed with the plan.
--- OUTSIDE RECORDS SUMMARY | 2025-03-07 12:50 | XMS_ITS | Data Portability ---
Author Organization [place] - [facility], Allergy Address [address] [place] [id number] Care Team Providers Care Tread Booker Name Role Phone CHIARA MICHELLE Primary Care Provider Assessment Encounter Date Assessment Date Assessment LastModified [...] submucous resection inferior turbinate (SURG) 2023 024 [id number] Not available 08/01/202 4 16:16:39 Imaging [...] Acute serous otitis media of right ear [id number] Active 2017 Acute serous otitis media, right ear; Note: Date Diagnosed : 05/21/2018 11:01 AM (H65.01) Not Available [facility] 4 03:03:43 Hypertrop hy of nasal turbinate s 79919606 Active 2014 inf turb reduction 07/2015 Dr Rito CONTRERAS MD [address] [place] [address],[place] [address], [place], [phone] , [facility] - [facility] 4 12:31:28 Follow-up visit Active 2014 Encounter for follow-up examinati on after completed treatment for condition s other than malignant neoplasm; Note: Date Diagnosed : 09/14/2015 11:40 AM (Z09) Not Available [facility] 4 03:03:42 Acute maxillary sinusitis 64989435 Active 2015 Acute maxillary sinusitis , unspecifi ed; Note: Date Diagnosed : 6 12:34 PM (J01.00) Not Available [facility] 4 03:03:43 Allergic rhinitis 80322581 Active 2018 CHLOE CONTRERAS MD [address] [facility],[place] [address], [place], [phone] , [facility] - [facility] 4 12:31:04 Disorder of left Eustachia n tube [id number] 51320 Active 2015 Other specified disorders of Eustachia n tube, left ear; Note: Date Diagnosed : 6 11:56 AM (H69.82) Not Available [facility] 4 03:03:41 Acute suppurati ve otitis media without spontaneo us rupture of ear drum 29162480 Active 2017 Acute suppurati ve otitis media without spontaneo us rupture of ear drum, left ear; Note: Date Diagnosed : 05/21/2018 11:01 AM (H66.002) Not Available [facility] 4 03:03:44 Nasal congestio n 98770592 Active 2017 Nasal congestio n; Note: Date Diagnosed : 8 12:20 PM (R09.81) Not Available [facility] 4 03:03:44 Diffuse otitis externa 22955902 Active 2018 Diffuse otitis externa, right ear; Note: Date Diagnosed : 03/07/2019 11:33 AM (H60.311) Not Available [facility] 4 03:03:41 Otalgia of right ear 9963947228 Active 2018 Otalgia, right ear; Note: Date Diagnosed : 03/07/2019 11:34 AM (H92.01) Not Available [facility] 4 03:03:42 Deviated nasal septum 036818359 Active 2014 Septal deviation / Deflectio n; Condition : uncontrol led Note: Date Diagnosed : 4 9:36 AM (470) ; Start Date : 4 Deviate d nasal septum; Note: Date Diagnosed : 07/21/2015 11:00 AM (J34.2) [mapped from ICD9 code: 470] Not Available [facility] 4 03:03:43 Chronic rhinitis 87498568 Active 2015 Chronic rhinitis; Note: Date Diagnosed : 12/28/2015 10:14 AM (J31.0) Not Available [facility] 4 03:03:43 Problem Notes None recorded. Procedures Surgical History Date Name Laterality Status Provider Name and Address Organization Details Recorded Time 5 Resect inferior turbinate completed CHLOE CONTRERAS MD [address] [place] [address], [phone], [facility] - [facility] 05/13/2024 12:25:19 Imaging Results Imaging Date Name Status [facility]Modified [facility] Details LastModified Time 01/08/2024 imaging/diag nostic result completed [email or web address] Information not available 06/26/2024 03:47:57 Procedure Notes None recorded. Medical Equipment None Reported. Medications Name Sig Start Date Stop Date Status Note LastModified by Organization Details LastModified Time Singulair 10 mg tablet Take 1 tablet by mouth 2023 active Medicati on ID: [id number] B rand Name: Magy r Send Method: [...] by mouth 2015 active Medicati on ID: [id number] D uration Value: 10 Prescri bed By Name: RODDY Bhagat nd Name: amoxicil kemi Send Method: E-Prescr ibed Sub s Allowed: subs OK Medic ationGen ericName : amoxicil kemi Not Available Not Available Not Available metformin 500 mg tablet 02/18 completed Medicati on ID: [id number] D uration Value: 30 Reason: () Brand [...] by mouth 2017 active Medicati on ID: [id number] D uration Value: 14 Prescri bed By Name: RODDY Melgoza nd Name: clarithr omycin S end Method: E-Prescr ibed Sub s Allowed: subs OK Medic ationGen ericName : clarithr omycin Not Available Not Available Not Available FreeStyle Lancets 28 gauge 02/18 completed Medicati on ID: [id number] D uration Value: 25 Reason: () Brand [...] by mouth 2023 active Medicati on ID: [id number] B rand Name: predniso ne Send Method: E-Prescr ibed Sub s Allowed: subs OK Speci al Instruct ion: Take 3 tabs daily for 3 days then 2 tabs daily for 3 days then 1 tabs daily for 3 days then stop Med icationG enericNa me: predniso ne Not Available Not Available Not Available metronida zole 500 mg tablet 12/28 completed Medicati on ID: [id number] Du ration Value: 5 Reason: () Brand [...] mg capsule 02/18 completed Medicati on ID: [id number] D uration Value: 30 Reason: () Brand Name: progeste nohemi microniz ed Send Method: E-Prescr ibed Sub s Allowed: subs OK Speci al Instruct ion: insert 1 capsule vaginall y at bedtime Medicati onGeneri cName: progeste nohemi stafford ed Not Available Not Available Not Available Zaditor 0.025 % (0.035 %) eye drops 2016 active Medicati on ID: [id number] D uration Value: 30 Prescri bed By [...] auto-inje ctor 03/02 completed Medicati on ID: [id number] D uration Value: 30 Brand Name: epinephr ine Send Method: E-Prescr ibed Sub s Allowed: subs OK Speci al Instruct ion: INJECT 1 PEN INTRAMUS CULARLY A SINGLE DOSE IF NEEDED M edicatio nGeneric Name: epinephr ine Not Available Not Available Not Available Nasonex 50 mcg/actua tion [place] 2 spray into both nostrils 10/21 completed Medicati on ID: [id number] Du ration Value: 30 Prescri bed By Name: Julito Martinez rd, Waylon Gutiérrez nd Name: Nasonex Send Method: E-Prescr ibed Sub s Allowed: subs OK Medic ationGen ericName : Nasonex Not Available Not Available Not Available Percocet 5 mg-325 mg tablet 1 tablet by mouth 12/28 completed Medicati on ID: [id number] Pr escribed By Name: Eliseo Veras MD Brand Name: Percocet Send Method: E-Prescr ibed Sub s Allowed: subs OK Medic ationGen ericName : Percocet Not Available Not Available Not Available ParaGard T 380A 380 square mm intrauter ine device 03/02 completed Medicati on ID: [id number] D uration Value: 1 Brand Name: ParaGard [...] mg capsule 12/28 completed Medicati on ID: [id number] Re ason: () Brand Name: Benadryl Send [...] 4 drop 2018 active Medicati on ID: [id number] D uration Value: 7 Prescri bed By Name: Eliseo Veras MD Brand Name: Ciprodex Send Method: E-Prescr ibed Sub s Allowed: subs OK Medic ationGen ericName : Ciprodex Not Available Not Available Not Available nitrofura ntoin monohydra te/macroc rystals 100 mg capsule 12/28 completed Medicati on ID: [id number] Du ration Value: 7 Reason: () Brand Name: nitrofur antoin monohyd/ m-cryst Send Method: E-Prescr ibed Sub s Allowed: subs OK Speci al Instruct ion: take 1 capsule by mouth every 12 hours for 7 days Med icationG enericNa me: nitrofur antoin monohyd/ m-cryst Not Available Not Available Not Available FreeStyle Lite Strips 02/18 completed Medicati on ID: [id number] D uration Value: 25 Reason: () Brand [...] e 205.5 mcg (0.15 %) nasal spray [place] 2 spray into both nostrils twice a day 2022 active Medicati on ID: [id number] D uration Value: 30 Brand Name: azelasti ne Send Method: E-Prescr ibed Sub s Allowed: subs OK Speci al Instruct ion: Use twice daily, 2 sprays each side of nose. Me dication GenericN shasta: azelasti ne Not Available Not Available Not Available Probiotic and Acidophil us 300 million cell-250 mg capsule 10/21 completed Medicati on ID: 1086 Belinda son: () Brand Name: Probioti c & Acidophi yanelis Send Method: E-Prescr ibed Sub s Allowed: subs OK Medic ationGen ericName : Probioti c & Acidophi yanelis Not Available Not Available Not Available PYROTECHNIC ASSEMBLER-HEME One 02/18 completed Medicati on ID: [id number] D uration Value: 30 Reason: () Brand Name: PYROTECHNIC ASSEMBLER-HEME One Send Method: E-Prescr ibed Sub s Allowed: subs OK Speci al Instruct ion: take 1 capsule by mouth once daily Me dication GenericN shasta: PYROTECHNIC ASSEMBLER-HEME One Not Available Not Available Not Available Nasacort 55 mcg nasal spray aerosol [place] 2 spray into both nostrils once a day 2022 active Medicati on ID: 116182 D uration Value: 30 Brand Name: Nasacort Send Method: E-Prescr ibed Sub s Allowed: subs OK Medic ationGen ericName : Nasacort Not Available Not Available Not Available Flonase Allergy Relief 50 mcg/actua tion nasal spray,juan pension 2 puff into both nostrils 2018 active Medicati on ID: [id number] D uration Value: 30 Prescri bed By [...] Updated DateTime 06/06/2024 152.4 cm 25 kg/m2 88172.82 g Angie Min [place] [facility] 06/06/2024 15:20:28 Social History None recorded. [...] Diagnosis Note [id number] CHLOE CONTRERAS MD [facility] [address] [phone] 06/06/2024 15:10:14 06/06/2024 15:43:31 Allergic rhinitis 79128277 J30.89 Hypertroph y of nasal turbinates 34725910 J34.3 Health Concerns Section Related Observation LastModified by Organization Detai ls LastModified Time None Recorded Concern Status LastModified by Organization Details LastModified Time None Recorded Advance Directives Directive None Recorded Payers Encounter Date Sequence Insurance Name Policy Number Policy [place] Covered Member ID [place] Member ID Guarantor Name 06/06/2024 1 [facility] - HEALTH NET PLAN (MEDICAID HMO) Benita Castaneda [id number] Benita Castaneda Notes Date Note Type Note [...] of mood disturbancezyrtec - no helpimmunotherapy SCIT [id number] - stopped during pregnancies, no change after 2 yrs of shot01/08/24 CT sinus xoran turbinate hypertrophy. Other notable findings included hypoplastic frontals, relatively hypoplastic maxillary sinuses with mild mucosal thickening and otherwise aerated paranasal sinuses. 07/31/[address] Veras/18/09 BMT, T&A in [place] current nasal regimen of flonase seems to help slight CHLOE CONTRERAS MD [address] [place] [address], [place], [address], [place] - [facility] 06/06/2024 15:41:09 OBGyn Episode No OBEpisode recorded.
== END 2025-03-07 12:35 | disposition home or self-care (01) ==
LOC: HO.HMCFM 12:03
PROVIDERS: PCP Nurse Practitioner Family; Visit Provider Nurse Practitioner Family
DX: E78.5 Hyperlipidemia, unspecified (principal); R73.03 Prediabetes; E55.9 Vitamin D deficiency, unspecified

== ENCOUNTER → 2025-03-07 12:03 | Outpatient (BNVA) | payer OTHER, SELFPAY | PROVIDERS: PCP Nurse Practitioner Family; Visit Provider Nurse Practitioner Family | DX: Z13.89 Encounter for screening for other disorder (principal) ==

== ENCOUNTER 2025-08-01 07:15 | Outpatient (REF) | payer OTHER, SELFPAY ==
--- OUTSIDE RECORDS SUMMARY | 2025-08-01 07:18 | XMS_ITS | Data Portability ---
Author Organization [place] - [facility], Allergy Address [address] [place] [id number] Care Team Providers Care River Driver Name Role Phone CHIARA MICHELLE Primary Care [...] submucous resection inferior turbinate (SURG) 2023 024 [id number] Not available 4 16:16:39 Imaging None recorded. Medication Orders None recorded. Patient TargetsNo targets recorded. Patient InstructionsNo instructions recorded. Reason for Referral None Reported. Results Created Date Observation Date Name Description Value Unit Range Abnormal Flag Note LastModifiedBy Organization Detail LastModifiedTime 06/26/20 24 01/08/2024 imagi ng/di agnos tic resul t No observ ation record ed. [email or web address] Not Available 03:47:57 Result Notes None recorded. Problems Name Problem SNOMED Code Status Onset Date Resolution Date Notes Provider Name and Address Organization Details Recorded Time Hypertrop hy of nasal turbinate s 29034338 Active 2014 inf turb reduction 07/2015 Dr Rito CONTRERAS MD [address] [place] [address], [facility] [place], [phone] , [facility] 4 12:31:28 Deviated nasal septum 045265864 Active 2014 Septal deviation / Deflectio n; Condition : uncontrol led Note: Date Diagnosed : 4 9:36 AM (470) ; Start Date : 4 Deviate d nasal septum; Note: Date Diagnosed : 07/21/2015 11:00 AM (J34.2) [mapped from ICD9 code: 470] Not Available [facility], [facility] 4 03:03:43 Follow-up visit Active 2014 Encounter for follow-up examinati on after completed treatment for condition s other than malignant neoplasm; Note: Date Diagnosed : 09/14/2015 11:40 AM (Z09) Not Available [facility], [facility] 4 03:03:42 Chronic rhinitis 09967547 Active 2015 Chronic rhinitis; Note: Date Diagnosed : 12/28/2015 10:14 AM (J31.0) Not Available [facility], [facility] 4 03:03:43 Acute maxillary sinusitis 62965866 Active 2015 Acute maxillary sinusitis , unspecifi ed; Note: Date Diagnosed : 6 12:34 PM (J01.00) Not Available [facility], [facility] 4 03:03:43 Disorder of left Eustachia n tube 51649702245 42515 Active 2015 Other specified disorders of Eustachia n tube, left ear; Note: Date Diagnosed : 6 11:56 AM (H69.82) Not Available [facility], [facility] 4 03:03:41 Acute serous otitis media of right ear 82345868181 79410 Active 2017 Acute serous otitis media, right ear; Note: Date Diagnosed : 05/21/2018 11:01 AM (H65.01) Not Available [facility], [facility] 4 03:03:43 Acute suppurati ve otitis media without spontaneo us rupture of ear drum 62019800 Active 2017 Acute suppurati ve otitis media without spontaneo us rupture of ear drum, left ear; Note: Date Diagnosed : 05/21/2018 11:01 AM (H66.002) Not Available [facility], [facility] 4 03:03:44 Nasal congestio n 10390313 Active 2017 Nasal congestio n; Note: Date Diagnosed : 8 12:20 PM (R09.81) Not Available [facility], [facility] 4 03:03:44 Diffuse otitis externa 32272396 Active 2018 Diffuse otitis externa, right ear; Note: Date Diagnosed : 03/07/2019 11:33 AM (H60.311) Not Available [facility], [facility] 4 03:03:41 Otalgia of right ear 6281112385 Active 2018 Otalgia, right ear; Note: Date Diagnosed : 03/07/2019 11:34 AM (H92.01) Not Available [facility], [facility] 4 03:03:42 Allergic rhinitis 35912076 Active 2018 CHLOE CONTRERAS MD [address] [place] [address], [place], [phone] , [facility] - [facility] 4 12:31:04 Problem Notes None recorded. Procedures Surgical History Date Name Laterality Status Provider Name and Address Organization Details Recorded Time 5 Resect inferior turbinate completed CHLOE CONTRERAS MD [address] [place] [address],[place] [address], [place], [address], [facility] - [facility] 05/13/2024 12:25:19 Imaging Results None recorded. Procedure Notes None recorded. Medical Equipment None Reported. Medications Name Sig Start Date Stop Date Status Note LastModified by Organization Details LastModified Time Singulair 10 mg tablet Take 1 tablet by mouth 2023 active Medicati on ID: 105503 B rand Name: Cristobalulai r Send Method: E-Prescr ibed Sub s Allowed: subs OK Speci al Instruct ion: Take 1 tablet by mouth every day in the evening. Do not start until after completi ng predniso ne course M edicatio nGeneric Name: Singulai r Not Available Not Available Not Available amoxicill in 500 mg capsule 1 capsule by mouth 2015 active Medicati on ID: [id number] D uration Value: 10 Prescri bed By Name: RODDY Bhagat nd Name: amoxicil kemi Send Method: E-Prescr ibed Sub s Allowed: subs OK Medic ationGen ericName : amoxicil kemi Not Available Not Available Not Available metformin 500 mg tablet 02/18 completed Medicati on ID: [id number] D uration Value: 30 Reason: () Brand [...] by mouth 2017 active Medicati on ID: [id number] D uration Value: 14 Prescri bed By Name: RODDY Melgoza nd Name: clarithr omycin S end Method: E-Prescr ibed Sub s Allowed: subs OK Medic ationGen ericName : clarithr omycin Not Available Not Available Not Available FreeStyle Lancets 28 gauge 02/18 completed Medicati on ID: [id number] D uration Value: 25 Reason: () Brand [...] by mouth 2023 active Medicati on ID: [id number] B rand Name: predniso ne Send Method: E-Prescr ibed Sub s Allowed: subs OK Speci al Instruct ion: Take 3 tabs daily for 3 days then 2 tabs daily for 3 days then 1 tabs daily for 3 days then stop Med icationG enericNa me: predniso ne Not Available Not Available Not Available metronida zole 500 mg tablet 12/28 completed Medicati on ID: 10587 Du ration Value: 5 Reason: () Brand [...] mg capsule 02/18 completed Medicati on ID: [id number] D uration Value: 30 Reason: () Brand Name: progeste nohemi microniz ed Send Method: E-Prescr ibed Sub s Allowed: subs OK Speci al Instruct ion: insert 1 capsule vaginall y at bedtime Medicati onGeneri cName: progeste nohemi microniz ed Not Available Not Available Not Available Zaditor 0.025 % (0.035 %) eye drops 2016 active Medicati on ID: 929535 D uration Value: 30 Prescri bed By [...] auto-inje ctor 03/02 completed Medicati on ID: [id number] D uration Value: 30 Brand Name: epinephr ine Send Method: E-Prescr ibed Sub s Allowed: subs OK Speci al Instruct ion: INJECT 1 PEN INTRAMUS CULARLY A SINGLE DOSE IF NEEDED M edicatio nGeneric Name: epinephr ine Not Available Not Available Not Available Nasonex 50 mcg/actua tion Homer 2 spray into both nostrils 10/21 completed Medicati on ID: [id number] Du ration Value: 30 Prescri bed By Name: Julito Martinez rd, Waylon Gutiérrez nd Name: Nasonex Send Method: E-Prescr ibed Sub s Allowed: subs OK Medic ationGen ericName : Nasonex Not Available Not Available Not Available Percocet 5 mg-325 mg tablet 1 tablet by mouth 12/28 completed Medicati on ID: [id number] Pr escribed By Name: Eliseo Veras MD Brand Name: Percocet Send Method: E-Prescr ibed Sub s Allowed: subs OK Medic ationGen ericName : Percocet Not Available Not Available Not Available ParaGard T 380A 380 square mm intrauter ine device 03/02 completed Medicati on ID: 861217 D uration Value: 1 Brand Name: ParaGard [...] mg capsule 12/28 completed Medicati on ID: [id number] Re ason: () Brand Name: Benadryl Send [...] 4 drop 2018 active Medicati on ID: [id number] D uration Value: 7 Prescri bed By Name: Eliseo Veras MD Brand Name: Ciprodex Send Method: E-Prescr ibed Sub s Allowed: subs OK Medic ationGen ericName : Ciprodex Not Available Not Available Not Available nitrofura ntoin monohydra te/macroc rystals 100 mg capsule 12/28 completed Medicati on ID: 95223 Du ration Value: 7 Reason: () Brand Name: nitrofur antoin monohyd/ m-cryst Send Method: E-Prescr ibed Sub s Allowed: subs OK Speci al Instruct ion: take 1 capsule by mouth every 12 hours for 7 days Med icationG enericNa me: nitrofur antoin monohyd/ m-cryst Not Available Not Available Not Available FreeStyle Lite Strips 02/18 completed Medicati on ID: [id number] D uration Value: 25 Reason: () Brand [...] e 205.5 mcg (0.15 %) nasal spray Homer 2 spray into both nostrils twice a day 2022 active Medicati on ID: 390409 D uration Value: 30 Brand Name: azelasti ne Send Method: E-Prescr ibed Sub s Allowed: subs OK Speci al Instruct ion: Use twice daily, 2 sprays each side of nose. Me dication GenericN shasta: azelasti ne Not Available Not Available Not Available Probiotic and Acidophil us 300 million cell-250 mg capsule 10/21 completed Medicati on ID: 1086 [place] son: () Brand Name: Probioti c & Acidophi yanelis Send Method: E-Prescr ibed Sub s Allowed: subs OK Medic ationGen ericName : Probioti c & Acidophi yanelis Not Available Not Available Not Available [employer] One 02/18 completed Medicati on ID: 734761 D uration Value: 30 Reason: () Brand Name: [employer]ANT-HEME One Send Method: E-Prescr ibed Sub s Allowed: subs OK Speci al Instruct ion: take 1 capsule by mouth once daily Me dication GenericN shasta: [employer] Not Available Not Available Not Available Nasacort 55 mcg nasal spray aerosol Homer 2 spray into both nostrils once a day 2022 active Medicati on ID: 127016 D uration Value: 30 Brand Name: Nasacort Send Method: E-Prescr ibed Sub s Allowed: subs OK Medic ationGen ericName : Nasacort Not Available Not Available Not Available Flonase Allergy Relief 50 mcg/actua tion nasal spray,juan pension 2 puff into both nostrils 2018 active Medicati on ID: [id number] D uration Value: 30 Prescri bed By [...] Updated DateTime 06/06/2024 152.4 cm 25 kg/m2 22681.82 g Angie Min [place] - [facility] 06/06/2024 15:20:28 Social History None recorded. Functional Status None recorded. Mental Status None recorded. Family History Nothing Reported. Medical History No medical history recorded. Gynecological HistoryNo gynecological history recorded. Obstetrics History GPAL:G 0 P 0 0 0 0 Past Encounters Encounter ID Performer Location Encounter Start Date Encounter Closed Date Diagnosis/Indication Diagnosis SNOMED-CT Code Diagnosis ICD10 Code Diagnosis IMO Codes Diagnosis Note [id number] CHLOE CONTRERAS MD [facility] [address] [address] 06/06/2024 15:10:14 06/06/2024 15:43:31 Allergic rhinitis 00001407 J30.89 Hypertroph y of nasal turbinates 34223662 J34.3 Health Concerns Section Related Observation LastModified by Organization Detai ls LastModified Time None Recorded Concern Status LastModified by Organization Details LastModified Time None Recorded Advance Directives Directive None Recorded Payers Insurance Date Sequence Insurance Name Policy Number Policy [place] Covered Member ID [place] Member ID Guarantor Name 06/06/2024 1 [facility] PLAN (MEDICAID HMO) Benita Castaneda [id number] Benita Castaneda Notes Date Note Type Note Provider Name and Address Organization Details Recorded Time text/html ROS as noted in the HPI Patient of Dr Cortes, last seen 03/12/24nasal congestion, and decreased hearing after URI March 2024 medication regimen in past with trials ofnasacort - helpfulastelin - stopped, not sure whyprednisone - helped, side effect of mood and sleep disturbancesingulair - side effect of mood disturbancezyrtec - no helpimmunotherapy SCIT [id number] - stopped during pregnancies, no change after 2 yrs of shot01/08/24 CT sinus xoran turbinate hypertrophy. Other notable findings included hypoplastic frontals, relatively hypoplastic maxillary sinuses with mild mucosal thickening and otherwise aerated paranasal sinuses. 07/31/[address] Veras12/19/10 BMT, T&A in [place] current nasal regimen of flonase seems to help slight CHLOE CONTRERAS MD [address] [place] [address], [place], [address], [facility] - [facility] 06/06/2024 15:41:09 OBGyn Episode No OBEpisode recorded.
[2025-08-01 11:29] LABS: Cholesterol 202 mg/dL (<200); HDL Cholesterol 37 mg/dL (>40); Triglycerides 143 mg/dL (<150)
== END 2025-08-01 07:16 | disposition home or self-care (01) ==
LOC: HO.HMGCLDS 07:15
PROVIDERS: PCP Nurse Practitioner Family; Visit Provider Nurse Practitioner Family
DX: E55.9 Vitamin D deficiency, unspecified (principal); E78.5 Hyperlipidemia, unspecified
CPT/HCPCS: 36415; 80061; 82306

== ENCOUNTER 2025-08-04 13:16 | Outpatient (AMB) | payer OTHER, SELFPAY ==
--- NOTE | 2025-08-04 13:11 | A.OFFPC_ITS ---
Intake Visit Reasons: Telehealth 2 mos dyslipidemia, vit d def Intake Note: patient here for 2 month Telehealth follow up for dyslipidemia and Vit.D deficiency. 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: No Is last menstrual period known: Yes Last menstrual period: 08/02/25 Post menopausal: No Patient : No Allergies No Known Allergies (No Known Allergies*) Allergy (Verified 08/04/25 13:12) Tobacco use date assessed: 08/04/25 Dental Screening Dental Screen Date: 08/04/25 Did you have a dental visit in the last 12 months?: Yes Did you have a dental problem in the last 6 months where you did not have access to dental care?: No Was dental information given to patient?: Patient has dentist HPI HPI Comments History of Present Illness Details 35-year-old female presents for a tele alth visit for review of recent lab results. She offers no complaints and denies acute symptoms at this time. 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 Mark Quintanilla, Isabel Hood, Hoang Jerome and colleagues, with an educational gi from [employer]. Review of Systems Const Details: Denies chills, Denies fatigue, Denies fever(s), Denies headache(s) and Denies weakness Cardiac Denies chest pain, Denies claudication, Denies leg edema, Denies lightheadedness, Denies palpitations, Denies dyspnea, Denies dyspnea on exerti on, Denies orthopnea and Denies other (Loss of consciousness) Resp Denies cough, Denies excessive phlegm production, Denies dyspnea, Denies dyspnea on exertion, Denies snoring and Denies wheezing Physical exam (Primary Care) Tobacco/Smoking Status: Tobacco use Status Tobacco use date assessed 08/04/25 08/04/25 13:14 Patient Tobacco Use Status Never used Tobacco 08/04/25 13:14 e-Cigarette/Vaping Use Never Used 08/04/25 13:14 Thrive Assessment: Date of Thrive Assessment Date Thrive assessed 09/23/24 08/04/25 13:14 Const Other: Patient is alert and oriented x3 Telehealth Telehealth Telehealth Platform: Telephone Location of provider rendering services: practice address Location of patient: address on file Patient Identification confirmed using: Name, : Yes Telehealth method: voice only Patient verbally consented to treatment: Yes Patient verbally consented to billing insurance company: Yes Patient informed of any privacy concerns related to visit: Yes Coding Level of Care Code Tele Est Pt Level 3 (96076) Diagnoses Dyslipidemia E78.5 Vitamin D deficiency E55.9 Time Spent (min) 10 Assessment & Plan Assessment & Plan (1) Dyslipidemia: Code(s): E78.5 - Hyperlipidemia, unspecified Category: Medical Plan: Recent total cholesterol level is slightly elevated, 202, LDL level is 137 from 117, HDL level is slightly low, 37, triglycerides level is normal. Advised to limit foods high in saturated fat and avoid foods high in trans fat. Routine exercise encouraged. Fast for 10-12 hours, may drink water, and perform lipid panel blood work a few days before next visit. Follow-up for an extended physical exam and dyslipidemia in 2 months. Return sooner with symptoms or concerns. Verbalized understanding and agreed with the plan. (2) Vitamin D deficiency: Code(s): E55.9 - Vitamin D deficiency, unspecified Category: Medical Plan: Recent vitamin-D level was normal. Continue current treatment regimen. Verbalized understanding and agreed with the plan. Orders: Orders Lipid Panel 2 Months E78.5 - Hyperlipidemia, unspecified Hemoglobin A1c Today R73.03 - Prediabetes
== END 2025-08-04 13:50 | disposition home or self-care (01) ==
LOC: HO.HMCFM 13:16
PROVIDERS: PCP Nurse Practitioner Family; Visit Provider Nurse Practitioner Family
DX: E78.5 Hyperlipidemia, unspecified (principal); E55.9 Vitamin D deficiency, unspecified

== ENCOUNTER 2025-10-20 08:44 | Outpatient (AMB) | payer OTHER, SELFPAY ==
--- NOTE | 2025-10-20 08:47 | A.OFFPC_ITS ---
Vital Signs 10/20/25 08:51 Height 5 ft Weight 133 lb BMI 26.0 BP 116/54 L Blood Pressure Location Lt brachial Position Sitting Respiration 15 Pulse 82 Pulse Source Pulse Oximeter Temp 98.1 F Temp Source Temporal Artery Scan Pulse Oximetry (%) 98 Oxygen Delivery Method Room Air Intake Visit Reasons: f/u for labs and pe- PHQ-9 NEEDED Intake Note: Benita presents in the office today for her annual physical. 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: No Is last menstrual period known: Yes Last menstrual period: 10/06/25 Post menopausal: No Patient : No Allergies No Known Allergies (No Known Allergies*) Allergy (Verified 10/20/25 09:01) Medication List - Last Reconciled 10/20/25 by Tamela Macedo CNP cholecalciferol (vitamin D3) (Vitamin D3) 25 mcg PO DAILY 90 days fluticasone propionate 50 mcg/actuation 2 sprays intranasal DAILY Tobacco use date assessed: 10/20/25 Dental Screening Dental Screen Date: 10/20/25 Did you have a dental visit in the last 12 months?: Yes Did you have a dental problem in the last 6 months where you did not have access to dental care?: No Was dental information given to patient?: Patient has dentist HPI HPI Comments History of Present Illness Details 35-year-old female presents for an exten ded physical exam. She admits to taking vitamin D3 as prescribed. She did not perform lipid panel and A1c blood work for this visit as planned. Acute issue(s) - None Past Medical History - Dyslipidemia, vitamin-D deficiency, pr ediabetes, myopia, elevated ALT, sleep disturbance Social History - Nonsmoker. Does not vape. Does not dri nk alcohol. Denies recreational drug use - Has been making healthy dietary choice s. Exercises routinely. Generally sleep well Health maintenance - Last eye exam was in April or May 2025 with [facility] - Last dental visit was early this year - Last Tdap vaccine was 7 years ago - Has not been vaccinated for the flu season; declines vaccination - Last pap smear test was in 07/2024 with [facility] dietary server: normal Specialists - Obgyn and ophthalmology [facility] Medical History (Updated 03/07/25 @ 12:22 by Tamela Macedo CNP) No pertinent past medical history Surgical History No pertinent past surgical history Social History (Updated 10/20/25 @ 08:51 by Ethel Nolan [facility]) Housing: House Alcohol intake: never Patient Tobacco Use Status: Never used Tobacco e-Cigarette/Vaping Use: Never Used Second Hand Smoke Exposure: No service: No Current occupational status: employed 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 1. Little interest or pleasure in doing things: not at all 2. Feeling down, depressed, or hopeless: not at all 3. Trouble falling or staying asleep, or sleeping too much: not at all 4. Feeling tired or having little energy: not at all 5. Poor appetite or overeating: not at all 6. Feeling bad about yourself - or that you are a failure or have let yourself or your family down: not at all 7. Trouble concentrating on things, such as reading the newspaper or watching television: not at all 8. Moving or speaking so slowly that other people could have noticed. Or the opposite - being so fidgety or restless that you have been moving around a lot more than usual: not at all 9. Thoughts that you would be better off or of hurting yourself in some way: not at all Total score: 0 Depression Screening Interpretation: Negative Depression Screening Done: Yes 77120 - PHQ-9 Billing: Yes Source: Developed by Drs. Mark Quintanilla, Isabel Hood, Hoang Jerome and colleagues, with an educational gi from [employer]. Thrive Questionnaire Date Thrive assessed: 10/20/25 I am a: Patient What is your living situation today?: I have a steady place to live Within the past 12 months, did the food you bought not last and you didn't have the money to get more?: Never true Within the past 12 months, did you worry whether your food would run out before you got money to buy more?: Never true Do you have trouble paying for medicines?: No Do you have trouble getting transportation to medical appointments?: No Do you have trouble paying your heating and electricity bill?: No Do you have trouble taking care of your child, family member or friend?: No Do you have trouble with day-to-day activities such as bathing, preparing meals, shopping, managing finances, etc.?: No Are you currently unemployed and looking for a job?: No Are you interested in more education?: No Please select the resources that you would like help with: None Currently or been in a relationship where the following occur: No concerns reported THRIVE Score: 0 AUDIT C Alcohol Use Questionnaire (AUDIT-C) 1. How often do you have a drink containing alcohol?: Never 3. How often do you have six or more drinks on one occasion?: Never Total Score: 0 Score Reviewed/Action Taken: Yes YANNICK-7 AMB Questionnaire YANNICK-7 Date YANNICK - 7 assessed: 10/20/25 Feeling nervous, anxious, or on edge: 0 = Not at all Not being able to stop or control worryin = Not at all Worrying too much about different things: 0 = Not at all Trouble relaxin = Not at all Being so restless that it is hard to sit still: 0 = Not at all Becoming easily annoyed or irritable: 0 = Not at all Feeling afraid as if something awful might happen: 0 = Not at all Total YANNICK-7 score (0-4 normal; 5-9 mild; 10-14 moderate; 15-21 severe): 0 Source: Developed by Drs. Mark Quintanilla, Isabel Hood, Hoang Jerome and colleagues, with an educational gi from [employer]. Review of Systems Const Details: Denies chills, Denies fatigue, Denies fever(s), Denies headache(s) and Denies weakness HEENT Denies change in vision, Denies dizziness, Denies headache(s), Denies hearing loss, Denies nasal congestion, Denies sinus pain, Denies sinus pressure and Denies sore throat Card Denies chest pain, Denies lightheadedness, Denies dyspnea and Denies other (palpitations) Resp Denies cough, Denies dyspnea and Denies wheezing GI Denies abdominal pain, Denies melena, Denies hematochezia, Denies change in bowel habits, Denies dyspepsia and Denies nausea Denies hematuria and Denies dysuria Musc Denies abnormal gait, Denies myalgias, Denies arthralgias, Denies numbness and Denies tingling Skin/Breast Denies rash, Denies unusual bruising and Denies wounds Neuro Denies abnormal gait, Denies dizziness, Denies headache(s), Denies memory loss, Denies numbness, Denies Sensory deficit (Neuro), Denies tingling and Denies weakness Psych Denies anxiety, Denies depression and Denies memory loss Endo Denies cold intolerance, Denies fatigue, Denies heat intolerance, Denies polydipsia and Denies polyuria Miguel Angel/Lymph Denies easy bleeding and Denies easy bruising Aller/Immun Denies wheezing Physical exam (Primary Care) Tobacco/Smoking Status: Tobacco use Status Tobacco use date assessed 03/07/25 10/20/25 08:49 Patient Tobacco Use Status Never used Tobacco 10/20/25 08:51 e-Cigarette/Vaping Use Never Used 10/20/25 08:51 PHQ-9: PHQ-9 Score PHQ-9: Total score 0 10/20/25 08:49 Depression Screening Interpretation: Negative Thrive Assessment: Date of Thrive Assessment Date Thrive assessed 10/20/25 10/20/25 08:49 Currently or been in a relationship where the following occur: No concerns reported Const Other: General: no acute distress, well developed, alert and awake Nutritional Appearance: well nourished Orientation/consciousness: patient oriented x3 HENMT Head: Yes normocephalic and Yes atraumatic Ears: hearing grossly normal bilaterally and TM's normal bilaterally General nose exam: Normal external nose present and Normal nares present Mouth: Normal oral and palatal mucosa present and moist mucous membranes Teeth and gingiva: dentition normal Throat: Yes oropharynx normal Eyes Pupils: Equal, round and reactive pupils present and Pupil accommodation reflex normal EOM: EOMs intact bilaterally Neck Neck: Yes normal visual inspection, Yes no lymphadenopathy and Yes trachea midline Thyroid: Thyroid normal Carotids: no bruits Lymphatic: no lymphadenopathy noted Chest Chest palpation & inspection: normal inspection of the chest Resp Effort & Inspection: normal respiratory effort Auscultation: clear to auscultation bilaterally Cardio Rate: regular rate Rhythm: regular rhythm Heart sounds: S1 normal heart sound present, S2 normal heart sound present, no gallops, no murmurs and no rubs Bruits: no abdominal aortic bruits and no carotid bruits GI Palpation (GI): No Abdominal aortic bruit present, Soft to palpation, nontender, No hepatosplenomegaly present and No Rebound tenderness present Auscultation: normal bowel sounds General: Yes no CVA tenderness Back/Spine/Pelvis Back: no CVA tenderness Cervical Spine: cervical ROM normal and No Cervical spine tenderness Thoracic/Lumbar Spine: thoraco-lumbar ROM normal, No pain with thoraco-lumbar ROM, No thoracic spinal tenderness and No lumbar spinal tenderness Skin General: warm and dry. Normal skin color. Normal skin turgor Lesions: no lesions Rashes: no rashes Trauma: no lacerations or abrasions Wounds: no wounds Nails: normal Neuro General: patient oriented x3, gait normal and CN's II-XI intact bilaterally Cranial nerves: Yes Equal, round and reactive pupils present Cognition (Neuro): normal cognition Gait exam (Neuro): Normal gait present Motor exam (neuro): 5/5 motor strength present throughout Sensory Exam: No Sensory deficit (Neuro) Deep tendon reflexes (DTR's): Right patellar reflex intensity grade: 2+ and Left patellar reflex intensity grade: 2+ Extrem General: Yes normal to inspection, No edema and No calf tenderness Psych Appearance: grossly normal Affect: normal affect Attitude: cooperative Thought process: Normal thought process present Coding Level of Care Code Est Pt Prev Care 18-39y(34371) Diagnoses Normal physical exam Z00.00 Laboratory tests ordered as part of a complete physical exam (CPE) Z00.00 Additional Codes PHQ-9 - 26605 - PHQ-9 Billing: Yes ([id number]) Assessment & Plan Assessment & Plan (1) Normal physical exam: Code(s): Z00.00 - Encounter for general adult medical examination without abnormal findings Category: Medical Plan: No significant functional Amitiza noted. Healthy diet and routine exercise encouraged. Perform lab work and follow-up in 2 months for transfer of care with a new PCP within the practice. Return sooner with symptoms or concerns. Verbalized understanding and agreed with the plan. (2) Laboratory tests ordered as part of a complete physical exam (CPE): Code(s): Z00.00 - Encounter for general adult medical examination without abnormal findings Category: Medical Plan: Fasting labs ordered as part of a complete physical exam. Advised to fast for at least 10 hours before getting labs drawn. May drink water Verbalized understanding and agreed with treatment plan. Orders: Orders Complete Blood Count Auto Diff 2 Months Z00.00 - Encounter for general adult medical examination without abnormal findings Comprehensive Manito. Panel Fast 2 Months Z00.00 - Encounter for general adult medical examination without abnormal findings Microalbumin, Random (w Creat) 2 Months Z00.00 - Encounter for general adult medical examination without abnormal findings UA CC w/rflx Micro + Cult 2 Months Z00.00 - Encounter for general adult medical examination without abnormal findings TSH reflex Free T4 2 Months Z00.00 - Encounter for general adult medical examination without abnormal findings Vitamin D 25-OH Total 2 Months Z00.00 - Encounter for general adult medical examination without abnormal findings
[2025-10-20 08:51] VITALS: BP 116/54; PULSE 82; RESP 15; TEMP 36.7; O2SAT 98; BMI 26.0
== END 2025-10-20 09:14 | disposition home or self-care (01) ==
LOC: HO.HMCFM 08:45
PROVIDERS: PCP Nurse Practitioner Family; Visit Provider Nurse Practitioner Family
DX: Z00.00 Encounter for general adult medical examination without abnormal findings (principal)

== ENCOUNTER → 2025-10-20 08:44 | Outpatient (BNVA) | payer OTHER, SELFPAY | PROVIDERS: PCP Nurse Practitioner Family; Visit Provider Nurse Practitioner Family | DX: Z00.00 Encounter for general adult medical examination without abnormal findings (principal) | CPT/HCPCS: 96127; 99395 ==